=== PATIENT | female | born 1940 | race Caucasian/White ===

== ENCOUNTER 2018-05-16 10:16 | Inpatient (IN) | payer OTHER ==
[~2018-05-16] VITALS: Ht 152.4 cm; Wt 53.1 kg
--- NOTE | ~2018-05-16 | H ---
[facility] [place] [address] HISTORY AND PHYSICAL Name: MARY LUKE Room #: 210-P ADM IN M.R.#: [id number] Admission: 05/16/18 Attend Phys: Pawan Rivera MD, Discharge: Date of : 38 Report #: [id number] THIS REPORT FOR: //name// CC: Jose Sanchez [facility] unknown DATE OF SERVICE: 05/16/2018 HISTORY OF PRESENT ILLNESS: The patient is a 77-year-old female, presents to the Emergency Room with an onset of severe chest pain, shortness of breath, which apparently occurred around 3:30 this morning. She does not speak any Turkish. According to the family, there was some significant discomfort the night prior where she had complained yesterday about some discomfort, but the night before took 2 Tylenol with no recurrence until early this morning, but did not speak of this until later this morning and subsequently brought by her family here to the Emergency Room. Having ST segment elevation in inferior leads, some subtle with some reciprocal changes. No prior cardiac history. She has been a diabetic for maybe 30 years. From what I can tell from limited information from the family, insulin, Pepcid, lisinopril, amlodipine, does not believe she takes a cholesterol medicine. She has not had prior cardiac intervention. She does see a physician in [place]. They say she has become more compliant since a recent knee injection and more active. PAST MEDICAL HISTORY: Positive for longstanding diabetes, hypertension, DJD, glaucoma and recent cataract surgery, recent knee injection. FAMILY HISTORY: Positive for all the siblings have from diabetes, they state. SOCIAL HISTORY: She is , 2 daughters who are present. No alcohol or tobacco. She is relatively independent. REVIEW OF SYSTEMS: Not really obtainable. PHYSICAL EXAMINATION: GENERAL: She is in only mild discomfort at this time. VITAL SIGNS: Blood pressure was 156/80, pulse was 70s. HEENT: Eyes reveal xanthelasmas. Pharynx is clear. NECK: Shows preserved upstrokes without JVD or bruits. LUNGS: Clear. CARDIAC: Regular rate and rhythm, S1, S2. No significant murmur or gallop. ABDOMEN: Soft. No HSM or abdominal bruit, slightly tender in the epigastric area. EXTREMITIES: Reveal trace of edema. Diminished distal pulses. NEUROLOGIC: Nonfocal. SKIN: Warm and dry without xanthoma or ulcer. [facility] [address] [place] [address] HISTORY AND PHYSICAL Name: MARY LUKE Room #: 210-P [facility] IN .R.#: [id number] Admission: 05/16/18 Attend Phys: Pawan Rivera MD, Discharge: Date of : 38 Report #: [id number] MUSCULOSKELETAL: Generalized arthritic changes. ASSESSMENT: 1. Acute inferolateral myocardial infarction. 2. Diabetes, longstanding. 3. Hypertension. 4. Suspected hypercholesterolemia. 5. Degenerative joint disease. RECOMMENDATIONS AND PLAN: We will proceed emergently to the catheterization lab. I have given aspirin, 80 mg of Lipitor and heparin bolus. We will proceed to catheterization lab for a diagnostic angiography and possible intervention if indicated. This was discussed briefly with her daughter. <ELECTRONICALLY SIGNED> By: Pawan Rivera MD, FACC 05/17/18 0906 1222 1239 Pawan Rivera MD, FACC /nt
--- NOTE | ~2018-05-16 | CATHLAB ---
[facility] [address] [place] [address] INVASIVE PROCEDURE REPORT Name: MARY LUKE Room #: 210-P ADM IN .R.#: [id number] Admission: 05/16/18 Attend Phys: Pawan Rivera, Discharge: Date of : 38 Date of Service: 05/16/18 1703 Report #: [id number] THIS REPORT FOR: //name// APPROVED REPORT Study performed: 05/16/2018 10:35:53 Patient Details Patient Status: In-Patient Room #: The patient is a 77 year-old female Event Personnel Pawan Rivera Back Maker, Mimi Gordon RTR, Alexandra Berger Amber Monitor, Magalys, Aliya RN RN, Tom Horta RN grinder operator surface tool Performed Art Access - R femoral artery* 55591 Initial Mod Sed Same Phys/QHP Gr5y [id number] 74378 Mod Sed Same Phys/QHP Ea 044799 Left Heart Cath w/or w/o Coronaries 3405814 [facility] Aortogram Abdominal Peripheral Angio 442786 PHILIPPE Revasc AMI Total/Sub Single CIRC C9606 AMIREVSING Hemostasis w/ Mynx Indication STEMI Procedure Narrative The patient was brought emergently to the Cardiac Catheterization Laboratory and was prepped and draped in a sterile manner. The Right Groin^ was infiltrated with 1% Lidocaine subcutaneous anesthesia. A PINNACLE 6FR Sheath #[id number] sheath was inserted into the RFA^. Coronary angiography was performed using coronary diagnostic catheters. The right coronary system was accessed and visualized with a JR 4 catheter. The left coronary system was accessed and visualized with a JL 4 catheter. The left ventricle was accessed and visualized with a Pigtail catheter. Left ventriculogram was performed in OSMAN projection. An aortogram of the abdominal aorta was performed. Closure device was deployed with a 6 Fr Mynx. The patient tolerated the procedure well and there were no complications associated with the procedure. There was no hematoma. Intraoperative Conscious Sedation Sedation start time: 11:21 Case end Time: 12:17 Fentanyl 50 mcg Versed [address] [address] INVASIVE PROCEDURE REPORT Name: PAULA LUKEA Room #: 210-P [facility] IN ..#: [id number] Admission: 05/16/18 Attend Phys: Pawan Rivera, Discharge: Date of : 38 Date of Service: 05/16/18 1703 Report #: [id number] Fluoro Time: 5.20 minutes Dose: DAP 4713.00 cGycm2 590 mGy Contrast Type and Amount: Visipaque 190 ml Hemodynamics The aortic pressure is 139/71 mmHg with a mean of 97 mmHg. The left ventricular pressure is 142/20 mmHg with a mean of mmHg. The left ventricular end diastolic pressure is 30 mmHg. PCI Technique Lesion Percutaneous coronary intervention was performed on the mid circumflex artery segment. A LAUNCHER 6FR EBU 3.5 #[id number] Guide Catheter was used to engage the ostium. A Luge Wire .014 x 182CM #[id number] Interventional Guidewire was used to cross the lesion. BALLOON DILATION A Balloon catheter Sprinter OTW 2.5 x 12 #[id number] was inserted and inflated up to 5.00atm for 14seconds. Additional Inflation: 6.00atm for 14seconds. Additional Inflation: 10.00atm for 19seconds. STENT DEPLOYMENT A drug-eluting stent RESOLUTE VENKAT OTW 2.5 X 18 #[id number] was inserted and inflated up to 12.00atm for 25seconds. Additional Inflation: 14.00atm for 15seconds. Conclusion #1 successful PTCA stent of a mid codominant circumflex artery acute infarct vessel 100% occlusion to 0 with anglican of MINAL grade 2 flow in the proximal circumflex and the first 2 OM branches are moderate and size and widely patent #2 left main short large free of disease giving rise to LAD and circumflex #3 LAD is mild a moderately disease 4050% long mid vessel extends around the apex no indication for intervention #4 anatomically dominant right coronary artery with 3040% proximal mid vessel lesion giving rise to relatively small PDA ANGELA. It's essentially a codominant system by distribution #5 normal left ventricular size with moderate area of inferior lateral hypokinesis there looks to be 2-3+ mitral regurgitation EF 40-45% #6 abdominal aorta is intact there is no symptom can aneurysm or stenosis noted [facility] [address] [place] [address] INVASIVE PROCEDURE REPORT Name: MARY LUKE Room #: 210[facility] IN M.R.#: [id number] Admission: 10/11/18 Attend Phys: Pawan Rivera, Discharge: Date of : 38 Date of Service: 05/16/181702 Report #: [id number] Recommendations and plan continue aggressive risk factor modification. Patient had moderate right groin hematoma. Despite closure device. Hemodynamically stable and pain-free. Will obtain echo Doppler to assess LV function and mitral regurg which may be ischemic in nature. To CCU and stable but guarded condition dual antiplatelet therapy indefinitely <ELECTRONICALLY SIGNED> By: Pawan Rivera MD, FACC 05/16/181702 02 02 Pawan Rivera MD, FACC /INF
--- NOTE | ~2018-05-16 | EKG ---
[address] [address] ELECTROCARDIOGRAM REPORT Name: MARY LUKE Room #: 210-P ADM IN M.R.#: [id number] Admission: 05/16/18 Attend Phys: Pawan Rivera MD, Discharge: Date of : 39 Report #: [id number] THIS REPORT FOR: //name// [facility] Test Date: 2018-05-18 Test Time: 08:02:49 Pat Name: MARY LUKE Department: Room: 210 P Gender: F Employment Interviewer: STEFFANIE : 1940 Requested By: Ni Arriola Order Number: [id number] MD: Lencho Mukherjee Measurements Intervals [place] Rate: 64 P: 44 ME: 154 QRS: -27 QRSD: 96 T: -53 QT: 472 QTc: 487 Interpretive Statements Sinus rhythm Abnormal R-wave progression, early transition Probable left ventricular hypertrophy Inferior infarct, recent Lateral leads are also involved Compared to ECG 05/17/2018 06:20:37 Atrial premature complex(es) no longer present Myocardial infarct finding still present Electronically Signed On 05-19-2018 16:47:31 CDT by Lencho Mukherjee [email or web address] <ELECTRONICALLY SIGNED> By: Lencho Mukherjee MD 05/19/18 1647 1 08 Lencho Mukherjee MD /EPI
--- NOTE | ~2018-05-16 | 2DMMODE ---
[facility] [address] [place] [address] 2 D/M-MODE ECHOCARDIOGRAM Name: MARY LUKE Room #: 210-P ADM IN M.R.#: [id number] Admission: 05/16/18 Attend Phys: Pawan Rivera, Discharge: Date of : 38 Date of Service: 05/20/18 1138 Report #: [id number] THIS REPORT FOR: //name// APPROVED REPORT Study performed: 05/20/2018 09:49:02 EXAM: Limited 2D, Doppler, and color-flow Echocardiogram Patient Location: Bedside Room #: 210 Status: routine BSA: 1.49 HR: 60 bpm BP: 99/53 mmHg Rhythm: NSR Other Information Study Quality: Adequate Indications Follow up echo for severity of mitral regurgitation. Ischemic mod-sev MR noted on echo done 05/16/18 status post cardiac stent. Aortic Valve AoV Peak Dale.: 1.75 m/s AO Peak Gr.: 12.18 mmHg Tricuspid Valve TR Peak Dale.: 2.08 m/s RAP Estimate: 5.00 mmHg TR Peak Gr.: 17.38 mmHg PA Pressure: 22.00 mmHg Left Ventricle The left ventricle is normal size. Regional wall motion abnormalities are noted. There is normal left ventricular wall thickness. Left ventricular systolic function is at the lower limits of normal LVEF 50%. Minimal hypokinesis of base of inferolateral wall Right Ventricle The right ventricle is normal size. The right ventricular systolic function is normal. Atria The left atrium size is normal. The right atrium size is normal. [facility] [address] [place] [address] 2 D/M-MODE ECHOCARDIOGRAM Name: MARY LUKE Room #: 210-P [facility] IN M.R.#: [id number] Admission: 05/16/18 Attend Phys: Pawan Rivera, Discharge: Date of : 38 Date of Service: 05/20/18 1138 Report #: [id number] Aortic Valve The aortic valve is normal in structure. Trace aortic regurgitation. There is no aortic valvular stenosis. Mitral Valve The mitral valve is normal in structure. Mild to at most moderate mitral regurgitation. Tricuspid Valve The tricuspid valve is normal in structure. Trace tricuspid regurgitation. Estimated PAP is 20-25mmHg. Great Vessels IVC is normal in size and collapses >50% with inspiration. Pericardium There is no pericardial effusion. <Conclusion> Left ventricular systolic function is at the lower limits of normal LVEF 50%. Minimal hypokinesis of base of inferolateral wall The aortic valve is normal in structure. No aortic valvular stenosis. The mitral valve is normal in structure. Mild to at most moderate mitral regurgitation. Trace tricuspid regurgitation. Estimated pulmonary artery pressure of 20-25mmHg. There is no pericardial effusion. <ELECTRONICALLY SIGNED> By: Delfino Crane MD, FAC 05/20/18 1138 1138 1138 Delfino Crane MD, FAC /INF
--- NOTE | ~2018-05-16 | EKG ---
[address] [employer] [facility] [place] [address] ELECTROCARDIOGRAM REPORT Name: PAULA LUKEA Room #: 210-P ADM IN M.R.#: [id number] Admission: 05/16/18 Attend Phys: Pawan Rivera MD, Discharge: Date of : 38 Report #: [id number] THIS REPORT FOR: //name// [facility] ED Test Date: 2018-05-16 Test Time: 10:29:46 Pat Name: MARY LUKE Department: Room: 210 Gender: F Jail Guard: CHAD : 1940 Requested By: Jose Sanchez Order Number: [id number] MD: Lencho Mukherjee Measurements Intervals [place] Rate: 73 P: 60 [place]: 172 QRS: 21 QRSD: 83 T: 76 QT: 376 QTc: 415 Interpretive Statements Sinus rhythm Inferior infarct, acute (RCA) Lateral leads are also involved Probable RV involvement, suggest recording right precordial leads Compared to ECG 01/11/2016 12:14:58 Myocardial infarct finding now present Sinus bradycardia no longer present Left ventricular hypertrophy no longer present Electronically Signed On 05-17-2018 8:16:32 CDT by Lencho Mukherjee [email or web address] <ELECTRONICALLY SIGNED> By: Lencho Mukherjee MD 05/17/18 0816 1029 1029 Lencho Mukherjee MD /EPI
--- NOTE | ~2018-05-16 | 2DMMODE ---
[facility] [place] [address] 2 D/M-MODE ECHOCARDIOGRAM Name: MARLYMARY Room #: 210-P [facility] IN ..#: [id number] Admission: 05/16/18 Attend Phys: Pawan Rivera, Discharge: Date of : 38 Date of Service: 05/16/18 1519 Report #: [id number] THIS REPORT FOR: //name// APPROVED REPORT Study performed: 05/16/2018 12:56:42 EXAM: Comprehensive 2D, Doppler, and color-flow Echocardiogram Patient Location: CVL Status: routine BSA: 1.47 HR: 59 bpm BP: 159/90 mmHg Rhythm: NSR Other Information Study Quality: Adequate/flat on back s/p heart cath Indications Myocardial Infarct status post stent. Hx: HTN, DM 2D Dimensions RVDd: 30.80 mm IVSd: 11.54 (7-11mm) LVOT Diam: 20.33 (18-24mm) LVDd: 47.28 mm PWd: 9.04 (7-11mm) Ascending Ao: 34.03 (22-36mm) LVDs: 37.52 (25-40mm) Aortic Root: 33.53 mm Volumes Left Atrial Volume (Systole) Single Plane 4CH: 35.69 mL Single Plane 2CH: 32.52 mL LA ESV Index: 26.00 mL/m2 Aortic Valve AoV Peak Dale.: 1.35 m/s AO Peak Gr.: 7.26 mmHg LVOT Max P.61 mmHg LVOT Max V: 0.81 m/s JAZMYNE Vmax: 1.95 cm2 Mitral Valve E/A Ratio: 0.8 MV Decel. Time: 178.83 ms [facility] [place] [place] [address] 2 D/M-MODE ECHOCARDIOGRAM Name: MARY LUKE Room #: [facility] IN .R.#: [id number] Admission: 05/16/18 Attend Phys: Pawan Rivera, Discharge: Date of : 38 Date of Service: 05/16/18 1519 Report #: [id number] MV E Max Dale.: 0.71 m/s MV A Dale.: 0.91 m/s MV PHT: 51.86 ms IVRT: 83.04 ms Pulmonary Valve PV Peak Dale.: 1.15 m/s PV Peak Gr.: 5.32 mmHg Pulmonary Vein P Vein S: 0.61 m/s P Vein A: 0.33 m/s P Vein D: 0.40 m/s P Vein A Dur.: 170.7 msec P Vein S/D Ratio: 1.52 Tricuspid Valve TR Peak Dale.: 2.76 m/s RAP Estimate: 5.00 mmHg TR Peak Gr.: 30.52 mmHg PA Pressure: 36.00 mmHg Left Ventricle The left ventricle is normal size. Regional wall motion abnormalities are noted. There is normal left ventricular wall thickness. Left ventricular systolic function is mildly decreased. LVEF is 45%. Inferolateral wall hypokinesis Mild diastolic dysfunction is present (impaired relaxation pattern). Right Ventricle The right ventricle is normal size. The right ventricular systolic function is normal. Atria The left atrium size is normal. The right atrium size is normal. Aortic Valve The aortic valve is normal in structure. No aortic regurgitation is present. There is no aortic valvular stenosis. Mitral Valve The mitral valve is normal in structure. Moderate to severe mitral regurgitation Tricuspid Valve The tricuspid valve is normal in structure. Mild tricuspid regurgitation. Estimated PAP is 35-40mmHg. Pulmonic Valve [address] [address] 2 D/M-MODE ECHOCARDIOGRAM Name: MARY LUKE Room #: 210-P [facility] IN M.R.#: [id number] Admission: 05/16/18 Attend Phys: Pawan Rivera, Discharge: Date of : 38 Date of Service: 05/16/18 1519 Report #: [id number] The pulmonary valve is normal in structure. Trace pulmonic regurgitation. Great Vessels The aortic root is normal in size. The ascending aorta is normal in size. IVC is normal in size and collapses >50% with inspiration. Pericardium There is no pericardial effusion. <Conclusion> Left ventricular systolic function is mildly decreased. LVEF is 45%. Inferolateral wall hypokinesis Mild diastolic dysfunction The aortic valve is normal in structure. No aortic regurgitation or stenosis The mitral valve is normal in structure. Moderate to severe mitral regurgitation Mild tricuspid regurgitation. Estimated pulmonary artery pressure of 35-40mmHg. There is no pericardial effusion. <ELECTRONICALLY SIGNED> By: Delfino Crane MD, FACC 05/16/18 1519 18 18 Delfino Crane MD, FACC /INF
--- NOTE | ~2018-05-16 | EKG ---
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
[~2018-05-16 10:16] MED LIST: AMLODIPINE BESY10 MG PO; LANTUS SOL100 UNIT/1 SQ; NOVOLOG100 UNIT/1 SUBQ; PEPCID20 MG PO
[2018-05-16 10:17] VITALS: BP 179/92
[2018-05-16 10:51] VITALS: BP 159/90
[2018-05-16 10:54] LABS: ABSOLUTE NEUTROPHILS 7.4 thou/uL (1.4-8.2); BASOPHILS 0.4 % (0.0-2.0); EOSINOPHILS 0.2 % (0.0-3.0); HEMATOCRIT 44.8 % (37.0-47.0); HEMOGLOBIN 15.2 gm/dL (12.0-15.0); LYMPHOCYTES 12.9 % (24.0-44.0); MCH 30.1 pg (26.0-34.0); MCHC 33.8 g/dL (28.0-37.0); MONOCYTES 4.9 % (1.0-8.0); PLATELET COUNT 173 thou/uL (150-400); POLYS 81.6 % (36.0-66.0); RBC 5.04 mil/uL (4.20-5.00); RDW 13.3 % (10.5-14.5); WBC 9.1 thou/uL (4.0-11.0)
[2018-05-16 11:00] LABS: CALCIUM 8.6 mg/dL (8.5-10.1); POTASSIUM 4.2 mmol/L (3.5-5.1)
[2018-05-16 11:04] LABS: APTT 26.3 Seconds (24.5-32.8); PROTIME 10.4 Seconds (9.3-11.4)
[2018-05-16 11:08] LABS: ALBUMIN 3.4 g/dL (3.4-5.0); MAGNESIUM 1.7 mg/dL (1.8-2.4); TOTAL BILIRUBIN 0.5 mg/dL (<0.1-1.0); TOTAL PROTEIN 7.2 g/dL (6.4-8.2)
[2018-05-16 11:11] LABS: TROPONIN-I 21.96 ng/mL (<0.06)
[2018-05-16 14:00] VITALS: BP 154/81
[2018-05-16 20:35] VITALS: BP 168/75
[2018-05-17 00:45] VITALS: BP 144/78
[2018-05-17 04:45] VITALS: BP 152/74
[2018-05-17 04:52] LABS: HEMATOCRIT 40.4 % (37.0-47.0); HEMOGLOBIN 13.7 gm/dL (12.0-15.0); MCH 29.9 pg (26.0-34.0); MCHC 33.8 g/dL (28.0-37.0); MCV 88.3 fL (80.0-100.0); RBC 4.57 mil/uL (4.20-5.00); RDW 13.1 % (10.5-14.5); WBC 8.3 thou/uL (4.0-11.0)
[2018-05-17 05:16] LABS: CHOLESTEROL 128 mg/dL (<200); HDL CHOLESTEROL 50 mg/dL (>40); LDL CHOLESTEROL 66 mg/dL (<100); SERUM ASSESSMENT Clear; TC:HDL 2.6 Ratio (Not establshd); TRIGLYCERIDE 63 mg/dL (<150); VLDL 13 mg/dL (<40)
[2018-05-17 05:19] LABS: TROPONIN-I 68.59 ng/mL (<0.06)
[2018-05-17 07:10] VITALS: BP 156/88
[2018-05-17] MEDS ORDERED: COZAAR100 MG PO (08:44)
[2018-05-17] MEDS ORDERED: CLOPIDOGREL75 MG PO (08:44)
[2018-05-17] MEDS ORDERED: ATORVASTATIN CA40 MG PO (08:44)
[2018-05-17] MEDS ORDERED: LOPRESSOR25 PO (08:44)
[2018-05-17] MEDS ORDERED: ASPIRIN325 PO (08:44)
[2018-05-17 11:20] VITALS: BP 134/81
[2018-05-17 16:00] VITALS: BP 133/80
[2018-05-17 20:30] VITALS: BP 120/58
[2018-05-18 04:45] VITALS: BP 112/72
[2018-05-18 05:21] LABS: HEMATOCRIT 38.5 % (37.0-47.0); HEMOGLOBIN 13.3 gm/dL (12.0-15.0); MCH 30.7 pg (26.0-34.0); MCHC 34.7 g/dL (28.0-37.0); MCV 88.4 fL (80.0-100.0); RBC 4.35 mil/uL (4.20-5.00); RDW 13.1 % (10.5-14.5); WBC 7.7 thou/uL (4.0-11.0)
[2018-05-18 05:26] LABS: CREATININE 1.1 mg/dL (0.6-1.0); POTASSIUM 4.2 mmol/L (3.5-5.1)
[2018-05-18 07:10] VITALS: BP 106/52
[2018-05-18 11:30] VITALS: BP 134/67
[2018-05-18 15:25] VITALS: BP 84/45
[2018-05-18 20:21] VITALS: BP 116/67
[2018-05-19 04:36] LABS: ABSOLUTE NEUTROPHILS 6.6 thou/uL (1.4-8.2); BASOPHILS 0.4 % (0.0-2.0); EOSINOPHILS 2.6 % (0.0-3.0); HEMATOCRIT 37.8 % (37.0-47.0); HEMOGLOBIN 12.8 gm/dL (12.0-15.0); LYMPHOCYTES 23.4 % (24.0-44.0); MCH 29.8 pg (26.0-34.0); MCHC 33.9 g/dL (28.0-37.0); MCV 87.9 fL (80.0-100.0); MONOCYTES 8.8 % (1.0-8.0); PLATELET COUNT 156 thou/uL (150-400); POLYS 64.8 % (36.0-66.0); RDW 12.8 % (10.5-14.5); WBC 10.2 thou/uL (4.0-11.0)
[2018-05-19 04:43] VITALS: BP 96/46
[2018-05-19 04:49] LABS: CREATININE 1.2 mg/dL (0.6-1.0); POTASSIUM 3.7 mmol/L (3.5-5.1)
[2018-05-19 08:36] VITALS: BP 90/60
[2018-05-19 12:49] VITALS: BP 102/59
[2018-05-19 16:11] VITALS: BP 118/61
[2018-05-19 20:35] VITALS: BP 111/49
[2018-05-19 23:36] VITALS: BP 102/46
[2018-05-20 03:31] LABS: ABSOLUTE NEUTROPHILS 4.7 thou/uL (1.4-8.2); BASOPHILS 0.5 % (0.0-2.0); EOSINOPHILS 4.2 % (0.0-3.0); HEMATOCRIT 33.8 % (37.0-47.0); HEMOGLOBIN 11.6 gm/dL (12.0-15.0); LYMPHOCYTES 26.7 % (24.0-44.0); MCH 30.1 pg (26.0-34.0); MCHC 34.3 g/dL (28.0-37.0); MCV 87.7 fL (80.0-100.0); PLATELET COUNT 143 thou/uL (150-400); POLYS 61.6 % (36.0-66.0); RBC 3.86 mil/uL (4.20-5.00); RDW 13.3 % (10.5-14.5); WBC 7.7 thou/uL (4.0-11.0)
[2018-05-20 03:41] LABS: CALCIUM 7.8 mg/dL (8.5-10.1); CREATININE 1.3 mg/dL (0.6-1.0); POTASSIUM 4.1 mmol/L (3.5-5.1)
[2018-05-20 04:45] VITALS: BP 114/57
[2018-05-20 07:09] VITALS: BP 99/53
[2018-05-20 11:31] VITALS: BP 108/54
[2018-05-20 15:20] VITALS: BP 107/42
[2018-05-20 21:05] VITALS: BP 110/68
[2018-05-21 00:12] VITALS: BP 91/46
[2018-05-21 03:58] VITALS: BP 126/66
[2018-05-21 07:22] VITALS: BP 84/57
[2018-05-21 08:37] VITALS: BP 84/57
== END 2018-05-21 10:40 | disposition home or self-care (01) | DRG 247 ==
LOC: ER 10:16 → 2N 10:51 → ENTRNSPT 05-21 10:12 → EDTRNSPTSTS 05-21 10:16 → 2N 05-21 10:40
PROVIDERS: Emergency Medicine; Internal Medicine Cardiovascular Disease; Nurse Practitioner Adult Health
PROC: B2111ZZ Fluoroscopy of Multiple Coronary Arteries using Low Osmolar Contrast (ICD-10-PCS; principal; 2018-05-16)
PROC: 4A023N7 Measurement of Cardiac Sampling and Pressure, Left Heart, Percutaneous Approach (ICD-10-PCS; principal; 2018-05-16)
PROC: B4101ZZ Fluoroscopy of Abdominal Aorta using Low Osmolar Contrast (ICD-10-PCS; principal; 2018-05-16)
PROC: B2151ZZ Fluoroscopy of Left Heart using Low Osmolar Contrast (ICD-10-PCS; principal; 2018-05-16)
PROC: 027034Z Dilation of Coronary Artery, One Artery with Drug-eluting Intraluminal Device, Percutaneous Approach (ICD-10-PCS; principal; 2018-05-16)
DX: I21.19 ST elevation (STEMI) myocardial infarction involving other coronary artery of inferior wall (principal); M19.90 Unspecified osteoarthritis, unspecified site; E11.39 Type 2 diabetes mellitus with other diabetic ophthalmic complication; H42 Glaucoma in diseases classified elsewhere; I08.1 Rheumatic disorders of both mitral and tricuspid valves; I10 Essential (primary) hypertension; E11.42 Type 2 diabetes mellitus with diabetic polyneuropathy; E78.00 Pure hypercholesterolemia, unspecified; I95.9 Hypotension, unspecified; Z98.49 Cataract extraction status, unspecified eye; Z83.3 Family history of diabetes mellitus; Z79.4 Long term (current) use of insulin; Z79.899 Other long term (current) drug therapy; Z23 Encounter for immunization
CPT/HCPCS: 10081

== ENCOUNTER 2018-09-07 16:54 | Inpatient (IN) | payer OTHER ==
[~2018-09-07] VITALS: Ht 149.9 cm; Wt 53.5 kg
[~2018-09-07 16:54] MED LIST changes: +ASPIRIN325 PO; +ATORVASTATIN CA40 MG PO; +CLOPIDOGREL75 MG PO; +COZAAR100 MG PO; +LOPRESSOR25 PO
[2018-09-07 16:59] VITALS: BP 164/84
[2018-09-07 17:36] LABS: URINE BILIRUBIN NEGATIVE (Negative); URINE BLOOD NEGATIVE (Negative); URINE CLARITY CLEAR; URINE COLOR YELLOW; URINE GLUCOSE-RANDOM* 3+ (Negative); URINE KETONES NEGATIVE (Negative); URINE LEUKOCYTES-REFLEX TRACE (Negative); URINE NITRITE-REFLEX NEGATIVE (Negative); URINE PROTEIN (DIPSTICK) TRACE (Negative); URINE SPECIFIC GRAVITY 1.025 (1.005-1.035)
[2018-09-07 17:39] LABS: ABSOLUTE NEUTROPHILS 5.9 thou/uL (1.4-8.2); BASOPHILS 0.8 % (0.0-2.0); EOSINOPHILS 1.7 % (0.0-3.0); HEMATOCRIT 40.8 % (37.0-47.0); LYMPHOCYTES 16.8 % (24.0-44.0); MCH 30.8 pg (26.0-34.0); MCHC 34.4 g/dL (28.0-37.0); MCV 89.7 fL (80.0-100.0); MONOCYTES 5.8 % (1.0-8.0); PLATELET COUNT 160 thou/uL (150-400); POLYS 74.9 % (36.0-66.0); RBC 4.55 mil/uL (4.20-5.00); RDW 13.4 % (10.5-14.5); WBC 7.9 thou/uL (4.0-11.0)
[2018-09-07] MEDS ORDERED: LEVEMIR FL100 UNIT/2 SUBQ (17:42)
[2018-09-07] MEDS ORDERED: ASPIRIN81 M2 PO (17:43)
[2018-09-07] MEDS ORDERED: AMLODIPINE BESY10 MG PO (17:44)
[2018-09-07] MEDS ORDERED: LOSARTAN POTASS50 MG PO (17:44)
[2018-09-07] MEDS ORDERED: COMBIGAN EYE DR10 ML OPHTHALMIC (17:48)
[2018-09-07 17:50] LABS: CALCIUM 8.8 mg/dL (8.5-10.1); CREATININE 1.1 mg/dL (0.6-1.0); POTASSIUM 3.8 mmol/L (3.5-5.1)
[2018-09-07 17:56] LABS: ALBUMIN 3.5 g/dL (3.4-5.0); TOTAL BILIRUBIN 0.9 mg/dL (<0.1-1.0); TOTAL PROTEIN 7.1 g/dL (6.4-8.2)
[2018-09-07 20:35] VITALS: BP 153/86
[2018-09-07 21:07] VITALS: BP 170/91
[2018-09-07 21:28] VITALS: BP 153/123
--- NOTE | 2018-09-08 02:59 | NUR ---
A/O, calm and cooperative; afebrile; denied pain; no n/v; patient drank ice water, tolerated well; got up to bed commode with one assist; bed rest, lab reviewed, will keep monitoring.
[2018-09-08 05:50] LABS: CALCIUM 8.5 mg/dL (8.5-10.1); CREATININE 0.8 mg/dL (0.6-1.0); POTASSIUM 3.3 mmol/L (3.5-5.1)
[2018-09-08 10:33] VITALS: BP 140/64
--- NOTE | 2018-09-08 13:06 | NUR ---
PT DELIVERED VIA BED D/T PAIN MED CONTROL ADM PRIOR TO TRANSFER, PT SPEAKS [facility], THREE FAMILY MEMBERS PRESENT, NO ISSUES OF PAIN OR NEEDS AT THIS TIME, WILL RESUME HANGING IVF WHEN SHE SHOWS UP IN [facility], GAVE FAMILY DRINKS AND ENCOURAGED ALL TO USE CALL LIGHT FOR ANY NEEDS, DID ANOTHER DEMO ON HOW TO USE LIGHTS AND NURSE CALL AND PT TURNED HER HEAD AWAY TOWARD TELEVISION.
--- NOTE | 2018-09-08 13:21 | NUR ---
FAMILY ASKS FOR REASON TO TRANFER DOWN HERE AND EXCLAIMED OVER HER STAFF UPSTAIRS WELL DOWN HERE
--- NOTE | 2018-09-08 13:32 | NUR ---
ASSUMED PT CARE AT 0700H. PT A&O X4. PT SPEAKS [place]. PT FAMILY AT BEDSIDE. PT STATES NO PAIN AT THE TIME. PT CONCERN OF PAIN DUE TO NOT EATING. PT PER PHYSICIAN VISIT STARTED ON BLAND, LOW FAT DIET. PT HAD PAIN AFTER EATING. PT TOLERATED MEDS. PT AMBULATES TO BATHROOM. PT HAD A BOWEL. PT HAD BRIEFS CHANGED TWICE. PT HAD GLU AT 67 AND CURRENTLY AT 144. PT CURRENTLY DC TO SICU RM 220. PT CONTINUES TO BE MONITORED WAITING FOR PIPIDA ON SUN.
[2018-09-08 14:00] VITALS: BP 132/76
--- NOTE | 2018-09-08 15:22 | NUR ---
WRAPPED IV SITE IT'S IN THE AC AND BEEPS CONSTANTLY D/T CONSTRICTION PTS CAN'T ALWAYS REMEMBER TO KEEP LIMB STRAIGHT
[2018-09-08 19:43] VITALS: BP 128/72
--- NOTE | 2018-09-09 07:59 | HC ---
[facility] [place] [address] CONSULTATION Name: LUKEMARY Room #: 220-P ADM IN M.R.#: [id number] Admission: 09/07/18 Attend Phys: Sammie Elizondo Discharge: Date of : 39 Report #: [id number] THIS REPORT FOR: //name// CC: FAM physician/PCP FAM unknown Sammie Elizondo CARDIOLOGY CONSULTATION HISTORY OF PRESENT ILLNESS: The patient is a 78-year-old female who speaks very little Cymro. She is known to me. She had an aborted inferolateral infarct in May of last year, 05/2018, with placement of a 2.5 x 18 Resolute [place] stent. She had moderate LAD and RCA disease. The ejection fraction was 40% to 45%. She does have a history of severe mitral regurgitation, but has been well compensated. I saw her right before [place] in the office. She has been compliant with medications. She is on dual-antiplatelet therapy and that will need to be continued. Mild pulmonary hypertension. In any event, she is admitted with a week of right upper quadrant and mid abdominal pain, with a change in her bowel habits with pale yellow stools. Subsequently, found to have a cholecystitis and this is being followed by General Surgery, continuing workup, which will include a PIPIDA scan tomorrow and antibiotics. It would be best as per and I agree with their note to hold off any semi-elective surgery for at least 6 months before we would interrupt dual-antiplatelet therapy. No chest pain or anginal complaints. The daughter is in the room to help with the language issues. She is compliant with medications currently. MEDICATIONS: Amlodipine 10; Voltaren gel p.r.n.; gabapentin 100 t.i.d.; Vistaril 25; Levemir; Xalatan; Cozaar 50, which is losartan; Prilosec; clopidogrel 75 and a baby aspirin. PAST MEDICAL HISTORY: CAD with an aborted inferolateral infarct, circumflex OM stent, 05/2018; mild ischemic cardiomyopathy; moderate valvular insufficiency with mild pulmonary hypertension; DJD; hypercholesterolemia; diabetes and chronic kidney disease. FAMILY HISTORY: Negative for premature coronary artery disease. A brother and sister with diabetes. SOCIAL HISTORY: She is accompanied by her daughter here. Never smoker. No alcohol use. Some caffeine. ALLERGIES: SOME PARTICULAR INSULIN. REVIEW OF SYSTEMS: Essentially not obtainable, except per the notes because of the language barrier, but there was a change in the bowel habits and the abdominal pain, [place] [address] CONSULTATION Name: MARY LUKE Room #: 220-P ADM IN M.R.#: [id number] Admission: 09/07/18 Attend Phys: Sammie Elizondo Discharge: Date of : 39 Report #: [id number] LABORATORY DATA: Creatinine was 1.1, potassium 3.3. Alkaline phosphatase was elevated 401 and ALT 136. Glucose 300. H and H are 14 and 40, white count 7.9. The urine looked relatively unremarkable. Lipase was not elevated. RADIOLOGIC DATA: CT showed distended gallbladder, some possible pericholecystic fluid and some stranding and generalized thickening. PHYSICAL EXAMINATION: GENERAL: She is pleasant. She does not speak Cymro. Her daughter is in the room. VITAL SIGNS: Blood pressure has been labile, but generally 150-170. Pulse is 80s. HEENT: Eyes reveal no xanthelasmas. Pharynx is clear. NECK: Shows preserved upstrokes, without JVD or bruits. LUNGS: Clear. CARDIAC EXAMINATION: Regular rate and rhythm, S1, S2, distant heart tones. ABDOMEN: Slightly tender in the epigastric and right upper quadrant. Bowel sounds appear hypoactive, but are present. EXTREMITIES: Reveal trace of nonpitting edema. NEUROLOGIC: Nonfocal. SKIN: Warm and dry, without xanthoma or ulcer. MUSCULOSKELETAL: Generalized arthritic changes. ASSESSMENT: 1. Acute cholecystitis. Currently being treated, may be more of an phijo-sd-gglsjyq nature. 2. Coronary artery disease with an aborted inferolateral infarct, 05/2018, with a drug-eluting stent in the circumflex obtuse marginal. 3. Mild ischemic cardiomyopathy of 45%. 4. Moderately severe mitral regurgitation with mild pulmonary hypertension. 5. Hypertension. 6. Hypercholesterolemia. 7. Diabetes. RECOMMENDATIONS AND PLAN: We will continue with dual-antiplatelet therapy. It sounds like there is further workup including antibiotics, possibly a drain. I would favor holding off on surgery for at least 6 months after the stent; so November would be a time frame. There are some reports of interrupting dual-antiplatelet therapy for emergent surgery, which we certainly could attempt if necessary. We will continue to follow with you. She appears to be cardiovascularly stable, without any chest pain or angina. We will discuss with Surgery about the option of proceeding with surgery sooner, but I suspect they will also be continuing with antibiotics and trying to cool this off before any operation. Ideally, an operation should be in November. [facility] [address] [place] [address] CONSULTATION Name: MARY LUKE Room #: 220-P ADM IN M.R.#: [id number] Admission: 09/07/18 Attend Phys: Sammie Elizondo Discharge: Date of : 39 Report #: [id number] Thank you for asking us to assist in the care of this patient. <ELECTRONICALLY SIGNED> By: Pawan Rivera MD, FACC 09/09/18 0759 0919 1036 Pawan Rivera MD, FACC /nt
[2018-09-09 08:00] VITALS: BP 115/59
--- NOTE | 2018-09-09 08:36 | EKG ---
[place] [address] [facility] [place] [address] ELECTROCARDIOGRAM REPORT Name: MARY LUKE Room #: 220-P ADM IN M.R.#: [id number] Admission: 09/07/18 Attend Phys: Sammie Elizondo Discharge: Date of : 39 Report #: [id number] THIS REPORT FOR: //name// [facility] Test Date: 2018-09-08 Test Time: 09:30:00 Pat Name: MARY LUKE Department: Room: 220 Gender: F Piano Mechanic: ONI : 1940 Requested By: Pawan Rivera Order Number: [id number] MD: Delfino Crane Measurements Intervals [place] Rate: 82 P: 46 FL: 151 QRS: -51 QRSD: 93 T: -49 QT: 417 QTc: 487 Interpretive Statements Sinus rhythm Inferolateral infarct, age indeterminate Compared to ECG 05/18/2018 08:02:49 ST segment elevation is less prominent Electronically Signed On 09-09-2018 8:36:24 BIRTH CERTIFICATE CLERK by Delfino Crane [email or web address] <ELECTRONICALLY SIGNED> By: Delfino Crane MD, [facility] 09/09/18 0836 9 Delfino Crane MD, [facility] /EPI
--- NOTE | 2018-09-09 10:52 | NUR ---
PATIENT CARE WAS ASSUMED AT 0715.PATIENT IS ALERT AND ORIENTED X4.PATIENT SPEAKS ROMANIAN ONLY.FAMILY IS AT BEDSIDE TO DO MINOR TRANSLATION.NO COMPLAINS OF PAIN AT THIS TIME.PT IS ASLEEP AT THIS TIME.IV IS INTACT AND INFUSING FLUIDS.PT HAS NOT EATNE SINCE MID-NIGHT FOR TEST.BREAKFAST WAS HELD.CALL LIGHT, PHONE, AND PERSONAL BELONGINGS ARE WITHIN REACH.
--- NOTE | 2018-09-09 11:02 | NUR ---
MORPHINE SULFATE 2.0 MG IVP GIVEN TO PT. IN NUC FOR STUDY PROTOCOL. VSS. PT. TOLERATED WITH NO C/O.
--- NOTE | 2018-09-09 12:34 | NUR ---
INITIAL ASSESSMENT: SW reviewed chart and spoke with nursing and attending physician. Pt was admitted from home due to abdominal pain/acute cholecystitis. Pt had PIPIDA scan earlier today. Per chart, pt lives at home with family. Pt's primary language is Greenlandic. No family present at bedside. Pt does not have health insurance. Referral sent to [facility] for financial assistance. Pt to have surgery in November. REJI is following to assist as needed with discharge planning.
--- NOTE | 2018-09-09 14:47 | 2DMMODE ---
[facility] [address] [place] [address] 2 D/M-MODE ECHOCARDIOGRAM Name: LUKEMARY Room #: 220-P ADM IN M.R.#: [id number] Admission: 09/07/18 Attend Phys: Sammie Chaudhari Discharge: Date of : 38 Date of Service: 09/09/18 1446 Report #: [id number] THIS REPORT FOR: //name// APPROVED REPORT Study performed: 09/09/2018 12:07:23 EXAM: Comprehensive 2D, Doppler, and color-flow Echocardiogram Patient Location: Bedside Room #: 220 Status: routine BSA: 1.47 HR: 80 bpm BP: 128/72 mmHg Rhythm: NSR Other Information Study Quality: Adequate Risk Factors: Cardiac Risk Factors: HTN, Hyperlipidemia, DM Indications Cardiomyopathy Previous WI 2D Dimensions IVSd: 11.04 (7-11mm) LVOT Diam: 18.00 (18-24mm) LVDd: 39.90 mm PWd: 11.63 (7-11mm) Ascending Ao: 31.20 (22-36mm) LVDs: 27.90 (25-40mm) Aortic Root: 27.15 mm LV Single Plane 4CH: 47.72 % LV Single Plane 2CH: 48.03 % Biplane EF: 49.4 % Volumes Left Atrial Volume (Systole) Single Plane 4CH: 34.47 mL Single Plane 2CH: 25.51 mL LA ESV Index: 25.00 mL/m2 Aortic Valve AoV Peak Dale.: 1.59 m/s AO Peak Gr.: 10.11 mmHg LVOT Max P.45 mmHg LVOT Max V: 0.93 m/s JAZMYNE Vmax: 1.47 cm2 [facility] [place] [address] 2 D/M-MODE ECHOCARDIOGRAM Name: LUKEMARY Room #: 220-P [facility] IN ..#: [id number] Admission: 09/07/18 Attend Phys: Sammie Chaudhari Discharge: Date of : 39 Date of Service: 09/09/18 1446 Report #: [id number] Mitral Valve E/A Ratio: 0.7 MV Decel. Time: 284.42 ms MV E Max Dale.: 0.69 m/s MV A Dale.: 1.06 m/s MV PHT: 82.48 ms IVRT: 65.74 ms TDI E/Lateral E': 13.80 E/Medial E': 23.00 Medial E' Dale.: 0.03 m/s Lateral E' Dale.: 0.05 m/s Pulmonary Valve PV Peak Dale.: 0.97 m/s PV Peak Gr.: 3.79 mmHg Pulmonary Vein P Vein S: 0.69 m/s P Vein A: 0.28 m/s P Vein D: 0.31 m/s P Vein A Dur.: 121.1 msec P Vein S/D Ratio: 2.23 Tricuspid Valve TR Peak Dale.: 2.33 m/s RAP Estimate: 7.00 mmHg TR Peak Gr.: 21.66 mmHg PA Pressure: 29.00 mmHg Left Ventricle The left ventricle is normal size. Borderline concentric left ventricular hypertrophy. Left ventricular systolic function is borderline. Mild inferolateral hypokinesis at base LVEF 50%. Grade I - abnormal relaxation pattern. Right Ventricle The right ventricle is normal size. The right ventricular systolic function is normal. Atria The left atrium size is normal. The right atrium size is normal. Aortic Valve The Aortic valve is sclerotic. No aortic regurgitation is present. There is no aortic valvular stenosis. [facility] [address] [address] 2 D/M-MODE ECHOCARDIOGRAM Name: MARY LUKE Room #: 220-P [facility] IN ..#: [id number] Admission: 09/07/18 Attend Phys: Sammie Chaudhari Discharge: Date of : 38 Date of Service: 09/09/18 1446 Report #: [id number] Mitral Valve There is mitral annular calcification. Mild mitral regurgitation. No evidence of mitral valve stenosis. Tricuspid Valve The tricuspid valve is normal in structure. Mild tricuspid regurgitation.Pulmonary artery pressure is 30 mmHg. Pulmonic Valve The pulmonary valve is normal in structure. There is no pulmonic valvular regurgitation. Great Vessels The aortic root is normal in size. IVC is normal in size and collapses >50% with inspiration. Pericardium There is no pericardial effusion. <Conclusion> Left ventricular systolic function is borderline. Possible mild inferolateral hypokinesis at base LVEF 50%. Mild diastolic dysfunction The aortic valve is sclerotic. No aortic regurgitation or stenosis. There is mitral annular calcification. Mild mitral regurgitation. Mild tricuspid regurgitation. Pulmonary artery pressure of 30 mmHg. There is no pericardial effusion. <ELECTRONICALLY SIGNED> By: Delfino Crane MD, FACC 09/09/18 1446 1446 1446 Delfino Crane MD, FACC /INF
[2018-09-09 19:49] VITALS: BP 136/63
--- NOTE | 2018-09-10 04:55 | NUR ---
Assumed pt care at 0700,pt A/OX3,german speaking only but able to make needs known.Family at the bedside and helping with interpretation.Up with AX1-2 to BSC and prefers to go the BR for BM's,passing flatus no BM yet.Denies N/V,voiding adequate amount. C/o abdominal pain and feeling like she wants to have a BM,medicated with Tylenol at this time will monitor for effectiveness.IV fluids/abts infusing via LFA IV without any problems. Noticed pt seems not to be seing well,on asking family reports she has Glaucoma not on her PMH,will update accordingly. Reports she normally gets 2 different eye drops at home checked her unreconcilled med history and the eye gtts are there. Call made to ADMISSIONS OFFICER for orders awaiting call back. Fall precautions in place,call light/personal items within reach.Will continue to monitor pt.
[2018-09-10 05:43] LABS: HEMATOCRIT 33.3 % (37.0-47.0); HEMOGLOBIN 11.7 gm/dL (12.0-15.0); MCHC 35.2 g/dL (28.0-37.0); RBC 3.78 mil/uL (4.20-5.00); RDW 13.6 % (10.5-14.5); WBC 8.1 thou/uL (4.0-11.0)
[2018-09-10 05:58] LABS: ALBUMIN 2.6 g/dL (3.4-5.0); CALCIUM 7.7 mg/dL (8.5-10.1); CREATININE 0.9 mg/dL (0.6-1.0); POTASSIUM 3.3 mmol/L (3.5-5.1); TOTAL BILIRUBIN 0.8 mg/dL (<0.1-1.0); TOTAL PROTEIN 5.5 g/dL (6.4-8.2)
[2018-09-10 07:45] VITALS: BP 146/73
[2018-09-10 07:50] VITALS: BP 146/73
[2018-09-10] MEDS ORDERED: AUGMENTIN 875-1 EACH PO (08:57)
--- NOTE | 2018-09-10 10:34 | NUR ---
ASSUME CARE OF PT AT 0715; PT A0X4; PT IS ALBANIAN SPEAKING BUT COOPERATIVE WITH NURSES; PATIENTS FAMILY IS WITH PATIENT AND DAUGHTER CAN SPEAK CITIZEN OF [place] AND [place]; WILL CONTINUE TO MONITOR
--- NOTE | 2018-09-10 10:45 | NUR ---
I AGREE WITH NURSING ASSESSMENT DONE BY ZACKERY/KENTON.
[2018-09-10 10:47] VITALS: BP 148/73
--- NOTE | 2018-09-10 11:48 | NUR ---
PATIENT IS DISCHARGED WITH DAUGHTER AND TO HOME; PATIENTS IV ACCESS HAS BEEN REMOVED; PATIENT BEEN GIVEN DISCHARGE DOCUMENTATION AND PERSCRIPTION FOR ANIBIOTIC;
== END 2018-09-10 12:00 | disposition home or self-care (01) | DRG 446 ==
LOC: ER 16:54 → SICU 19:45 → EROBS 19:45 → 4E 21:03 → SICU 09-08 13:01 → ENTRNSPT 09-10 11:47 → EDTRNSPTSTS 09-10 11:53 → SICU 09-10 12:00
PROVIDERS: Nurse Practitioner Family; Physician Assistant; Surgery; ADMIT Hospitalist
DX: K81.0 Acute cholecystitis (principal); I25.10 Atherosclerotic heart disease of native coronary artery without angina pectoris; I25.5 Ischemic cardiomyopathy; I27.20 Pulmonary hypertension, unspecified; E78.00 Pure hypercholesterolemia, unspecified; M19.90 Unspecified osteoarthritis, unspecified site; E11.22 Type 2 diabetes mellitus with diabetic chronic kidney disease; N18.9 Chronic kidney disease, unspecified; E11.42 Type 2 diabetes mellitus with diabetic polyneuropathy; I08.1 Rheumatic disorders of both mitral and tricuspid valves; I12.9 Hypertensive chronic kidney disease with stage 1 through stage 4 chronic kidney disease, or unspecified chronic kidney disease; I25.2 Old myocardial infarction; Z95.5 Presence of coronary angioplasty implant and graft; Z79.02 Long term (current) use of antithrombotics/antiplatelets; Z79.4 Long term (current) use of insulin; Z79.82 Long term (current) use of aspirin; Z79.899 Other long term (current) drug therapy; Z88.8 Allergy status to other drugs, medicaments and biological substances; Z83.3 Family history of diabetes mellitus; Z82.49 Family history of ischemic heart disease and other diseases of the circulatory system
CPT/HCPCS: 10183; 15002

== ENCOUNTER 2018-09-15 15:52 | Inpatient (IN) | payer OTHER ==
[~2018-09-15] VITALS: Ht 147.3 cm; Wt 55.6 kg
--- NOTE | ~2018-09-15 | HC ---
[facility] [place] [address] CONSULTATION Name: MARY LUKE Room #: 219-P ADM IN M.R.#: [id number] Admission: 09/15/18 Attend Phys: Jonelle Branch MD Discharge: Date of : 39 Report #: [id number] THIS REPORT FOR: //name// CC: FAM unknown Jonelle Branch DATE OF SERVICE: 09/16/2018 HISTORY OF PRESENT ILLNESS: The patient is a 78-year-old female, non-Armenian speaking, admitted with expressive aphasia or speech difficulties. 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 There is a question as to whether this stroke is cardioembolic. Neurology is involved as well as Cardiology. We are seeing her in rehabilitation medicine consultation. PAST MEDICAL HISTORY: Includes diabetes mellitus, hypertension, recent acute cholecystitis. She has had a recent acute inferior lateral NC with coronary stenting, history of peripheral neuropathy. MEDICATIONS: Please see the full medication listing. SOCIAL HISTORY: The patient and her live with their granddaughter. She used a walker to get around. The granddaughter works. The patient's would not be able to give her much assistance. There are other family members in the area that could assist, although one of the daughters told me that they would consider looking for a paid help if need be while everyone worked. 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 No current complaints of chest pain, shortness of breath or abdominal discomfort. PHYSICAL EXAMINATION: GENERAL: A 78-year-old female in no obvious distress. VITAL SIGNS: Last recorded temperature 99.4, pulse 78, respirations 16, blood pressure 127/68. NEUROLOGIC: The patient is Chinese speaking. She was looking around the room and I can get her to fix and follow, but she does have the decreased vision as noted by family. Facies appeared symmetric. Functional range of motion of both upper and lower extremities, I would grade her strength at a 3+/5. It was difficult to get her to actually participate with manual muscle testing as I am uncertain if she understood what I was asking. Her daughter was there as an deaf interpreter. There is no calf swelling. Tone appeared normal or maybe somewhat decreased. ASSESSMENT: A 78-year-old female with the following problem list: 1. 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 2. Speech difficulties noted with expressive aphasia. 3. Apparent functional decline, although will need to see how she does in [address] [address] CONSULTATION Name: MARY LUKE Room #: 219-P [facility] IN M.R.#: [id number] Admission: 09/15/18 Attend Phys: Jonelle Branch MD Discharge: Date of : 39 Report #: [id number] therapies. 4. Recent acute inferior lateral myocardial infarction with coronary stenting. 5. Diabetes mellitus. 6. Hypertension. 7. Recent acute cholecystitis. PLAN: Therapy evaluations are underway. We will need to see how she does with her therapies and proceed from there. Discussion done with the patient's daughters. By: 1308 0142 Julio Black MD /PMT
[~2018-09-15 15:52] MED LIST changes: +ASPIRIN81 M2 PO; +AUGMENTIN 875-1 EACH PO; +COMBIGAN EYE DR10 ML OPHTHALMIC; +LEVEMIR FL100 UNIT/2 SUBQ; +LOSARTAN POTASS50 MG PO
[2018-09-15 15:53] VITALS: BP 149/75
[2018-09-15 16:28] LABS: POC CA IONIZED 4.4 mg/dL (4.5-5.3); POC CREATININE 0.9 mg/dL (0.6-1.3); POC HEMOGLOBIN 12.9 g/dL (12.0-15.0); POC POTASSIUM 3.5 mmol/L (3.5-5.1)
[2018-09-15 16:32] LABS: ABSOLUTE NEUTROPHILS 6.3 thou/uL (1.4-8.2); BASOPHILS 0.4 % (0.0-2.0); EOSINOPHILS 0.9 % (0.0-3.0); HEMATOCRIT 38.5 % (37.0-47.0); HEMOGLOBIN 13.1 gm/dL (12.0-15.0); LYMPHOCYTES 16.8 % (24.0-44.0); MCH 30.6 pg (26.0-34.0); MCHC 33.9 g/dL (28.0-37.0); MCV 90.2 fL (80.0-100.0); MONOCYTES 6.6 % (1.0-8.0); PLATELET COUNT 154 thou/uL (150-400); POLYS 75.3 % (36.0-66.0); RBC 4.26 mil/uL (4.20-5.00); RDW 13.8 % (10.5-14.5); WBC 8.4 thou/uL (4.0-11.0)
[2018-09-15 16:50] LABS: CALCIUM 8.6 mg/dL (8.5-10.1); CREATININE 1.1 mg/dL (0.6-1.0); POTASSIUM 3.5 mmol/L (3.5-5.1)
[2018-09-15 16:58] LABS: TOTAL BILIRUBIN 0.8 mg/dL (<0.1-1.0); TOTAL PROTEIN 6.4 g/dL (6.4-8.2)
[2018-09-15 16:59] LABS: URINE BILIRUBIN NEGATIVE (Negative); URINE BLOOD NEGATIVE (Negative); URINE CLARITY CLEAR; URINE COLOR YELLOW; URINE GLUCOSE-RANDOM* NEGATIVE (Negative); URINE KETONES 1+ (Negative); URINE LEUKOCYTES-REFLEX NEGATIVE (Negative); URINE NITRITE-REFLEX NEGATIVE (Negative); URINE PROTEIN (DIPSTICK) TRACE (Negative); URINE SPECIFIC GRAVITY 1.025 (1.005-1.035)
[2018-09-15 17:00] LABS: TROPONIN-I 2.51 ng/mL (<0.06)
[2018-09-15 19:12] VITALS: BP 142/69
[2018-09-15 19:53] LABS: CHOLESTEROL 140 mg/dL (<200); HDL CHOLESTEROL 44 mg/dL (>40); LDL CHOLESTEROL 80 mg/dL (<100); TC:HDL 3.2 Ratio (Not establshd); TRIGLYCERIDE 84 mg/dL (<150); VLDL 17 mg/dL (<40)
[2018-09-15 19:55] VITALS: BP 154/87
[2018-09-15 21:15] VITALS: BP 146/94
[2018-09-16 00:38] VITALS: BP 124/67
--- NOTE | 2018-09-16 03:12 | NUR ---
PT ARRIVED FROM ER AROUND 2029. VSS, SLIGHTLY ELEVATED TEMP OF 99.6. AND BP IN 140s. PT WAS ALERT AND AWAKE. SHE COULD ONLY SAY HER FIRST NAME AND STATED THAT SHE WAS HUNGRY. PT IS SR ON MONITOR, TELE STRIP IN CHART. ALMOST INCONCLUSIVE NIH SCALE ASSESSMENTS PT SAID " NO, OR I DONT KNOW" TO MOST COMMANDS. PT HOWEVER PASSED THE BESIDE SWALLOW STUDY, SHE WAS ABLE TO SWALLOW SIPS AND A GULP OF WATER WITHOUT CHOCKING, TEARY EYE OR DISCOMFORT. PT WAS ABLE TO GET UP WITH 2 ASSIST TO THE BEDSIDE COMMODE. IV CAME OUT, THIS AM, NEW IV PLACED. PT APPEARS TO BE IN NO APPARENT DISTRESS. FAMILY IS STILL IN ROOM, WILL CONTINUE TO MONITOR PER POC
[2018-09-16 03:46] VITALS: BP 140/67
[2018-09-16 03:50] LABS: CALCIUM 8.2 mg/dL (8.5-10.1); POTASSIUM 3.4 mmol/L (3.5-5.1)
[2018-09-16 04:14] LABS: HEMATOCRIT 35.1 % (37.0-47.0); MCH 30.6 pg (26.0-34.0); MCHC 34.2 g/dL (28.0-37.0); MCV 89.4 fL (80.0-100.0); RBC 3.92 mil/uL (4.20-5.00); RDW 13.6 % (10.5-14.5); WBC 7.5 thou/uL (4.0-11.0)
[2018-09-16 07:14] VITALS: BP 127/68
--- NOTE | 2018-09-16 08:15 | NUR ---
PT DIVEHI SPEAKING ONLY. ZABRINA AT BEDSIDE AND TRANSLATING. PT WILL HAVE MRI BRAIN THIS AM.
--- NOTE | 2018-09-16 08:22 | EKG ---
[address] [address] ELECTROCARDIOGRAM REPORT Name: MARY LUKE Room #: 219-P ADM IN M.R.#: [id number] Admission: 09/15/18 Attend Phys: Jonelle Branch MD Discharge: Date of : 39 Report #: [id number] THIS REPORT FOR: //name// [facility] ED Test Date: 2018-09-15 Test Time: 17:05:19 Pat Name: MARY LUKE Department: Room: 219 P Gender: F Detective [employer]: Arthur JIMENEZ RN : 1940 Requested By: Wagner Garza Order Number: [id number] MD: Delfino Crane Measurements Intervals [place] Rate: 75 P: 132 CO: 147 QRS: -42 QRSD: 89 T: -36 QT: 427 QTc: 477 Interpretive Statements Sinus rhythm Inferolateral infarct, age indeterminate Baseline wander in lead(s) I,II,aVR,aVF Compared to ECG 09/08/2018 09:30:00 No significant changes Electronically Signed On 09-16-2018 8:22:00 DAYLIGHT DRILLER by Delfino Crane [email or web address] <ELECTRONICALLY SIGNED> By: Delfino Crane MD, [facility] 09/16/18 0822 1705 1705 Delfino Crane MD, [facility] /EPI
--- NOTE | 2018-09-16 09:15 | NUR ---
PT OFF UNIT TO MRI.
--- NOTE | 2018-09-16 09:54 | HC ---
[facility] [place] [address] CONSULTATION Name: MARY LUKE Room #: 219-P ADM IN M.R.#: [id number] Admission: 09/15/18 Attend Phys: Jonelle Branch MD Discharge: Date of : 39 Report #: [id number] THIS REPORT FOR: //name// CC: FAM unknown Jonelle Branch DATE OF SERVICE: 09/15/2018 HISTORY OF PRESENT ILLNESS: This is a 78-year-old female patient who was evaluated by me in the Emergency Room. The patient was not able to provide any history at all. I talked to the family who provided history. The history is that this patient got up this morning, and she was having speech difficulty. She lives with her granddaughter, who was not here, but when the other family member came, they noticed pretty significant speech difficulty, but from all indication, it would look like this patient woke up with speech difficulty. When she went to the bed last night, she was not having any speech difficulty. She had an MRI in May, and she had a problem with the gallbladder, but she was told that she cannot have any surgery because of the cardiac problems. She did have a CT scan of the head that showed what looks like old strokes in this patient. REVIEW OF SYSTEMS: Indicates that this patient had an NC. She also had a problem with the gallbladder. She has been into this hospital. Record indicates she has a mild ischemic cardiomyopathy. She is a diabetic. PAST MEDICAL HISTORY: Positive for a recent NC. FAMILY HISTORY: Unremarkable. SOCIAL HISTORY: She has a large family. She speaks Bermudian only. PHYSICAL EXAMINATION: Very difficult to carry out. I attempted multiple times, but she has difficulty following commands. This is in spite of the fact that we did a Bermudian translation. Family thinks her speech is all garbled. We cannot tell about the focal deficit when I tried to do the visual field, she does count fingers pretty randomly, so I do not know whether she can see at all or not. This patient's finding was consistent with a stroke. It was a wakeup stroke, and even then she came to Emergency Room pretty late. Because of that she was not a TPA candidate because she was way outside the window for both 3-hour and 4-1/2 hour. I asked the Emergency Room to proceed with CT angiogram to see if we can find any intervention which may be appropriate for this patient, even if the symptoms time of onset should be considered yesterday. CT angiogram was done. It confirmed the stroke, but there is no blood clot in the poarch of [place] and only mild atherosclerotic disease in internal carotid artery. Because of that, the patient is not any intervention candidate. Therefore, she [address] [address] CONSULTATION Name: MARY LUKE Room #: 219-P [facility] IN M.R.#: [id number] Admission: 09/15/18 Attend Phys: Jonelle Branch MD Discharge: Date of : 38 Report #: [id number] was not found to be TPA candidate or intervention candidate. As I said, it was a wakeup stroke, and she was way outside the window for 3 hours or 4-1/2 hour for TPA and no clot could be retrieved because CT angiogram was unremarkable, and hence she was not a clot retrieval candidate. Unfortunately, nothing could be done. She is already on aspirin and Plavix. It is not clear when was the last dose, but in any event, both aspirin and Plavix should be still in the system, and we should restart it, and we will do the full consultation in the morning when Dr. Cam will see this patient. I discussed all of it with the patient's family in detail earlier today. <ELECTRONICALLY SIGNED> By: Yg Lemos MD 09/16/18 0954 0217 0831 Yg Lemos MD /nt
--- NOTE | 2018-09-16 10:50 | 2DMMODE ---
[facility] [place] [address] 2 D/M-MODE ECHOCARDIOGRAM Name: MARY LUKE Room #: 219-P ADM IN M.R.#: [id number] Admission: 09/15/18 Attend Phys: Jonelle Branch MD Discharge: Date of : 38 Date of Service: 09/16/18 1050 Report #: [id number] THIS REPORT FOR: //name// APPROVED REPORT Study performed: 09/16/2018 10:01:38 EXAM: Comprehensive 2D, Doppler, and color-flow Echocardiogram Patient Location: Bedside Room #: 219 Status: routine BSA: 1.37 HR: 83 bpm BP: 127/68 mmHg Rhythm: NSR Other Information Study Quality: Good Indications CVA/TIA Echo Enhancing Agent Indication: Rule out Shunt Agent(s) / Amount(s) Used: Agitated Saline 7 cc Left Ventricle The left ventricle is normal size. There is normal LV segmental wall motion. There is normal left ventricular wall thickness. The left ventricular systolic function is normal. The left ventricular ejection fraction is within the normal range. LVEF is 50-55%. Right Ventricle The right ventricle is normal size. The right ventricular systolic function is normal. Atria The left atrium size is normal. Interatrial septum is intact without evidence of ASD or PFO. The right atrium size is normal. Aortic Valve The aortic valve is normal in structure. Mitral Valve The mitral valve is normal in structure. There is mitral annular [facility] [address] [place] [address] 2 D/M-MODE ECHOCARDIOGRAM Name: MARY LUKE Room #: 219-P ADM IN M.R.#: [id number] Admission: 09/15/18 Attend Phys: Jonelle Branch MD Discharge: Date of : 38 Date of Service: 09/16/18 1050 Report #: [id number] calcification. The mitral valve chordae are thickened and/or calcified. There is systolic anterior motion of the mitral valve. The mitral valve is normal in structure and function. Mitral valve is normal in structure. Tricuspid Valve The tricuspid valve is normal in structure. Pulmonic Valve Pulmonic valve is not well visualized. Great Vessels The aortic root is normal in size. IVC is normal in size and collapses >50% with inspiration. Pericardium There is no pericardial effusion. <Conclusion> The left ventricle is normal size. LVEF is 50-55%. The aortic valve is normal in structure. The mitral valve is normal in structure. The tricuspid valve is normal in structure. Pulmonic valve is not well visualized. Interatrial septum is intact without evidence of ASD or PFO. There is no pericardial effusion. <ELECTRONICALLY SIGNED> By: iDno Coto MD 09/16/18 1050 1050 1050 Dino Coto MD /INF
[2018-09-16 11:35] VITALS: BP 153/82
--- NOTE | 2018-09-16 14:42 | NUR ---
PT ONEYDA NOT LIKE FOOD AT HOSPITAL INSTRUCT FAMILY TO BRING IN WHAT SHE CAN EEAT.
[2018-09-16 20:08] VITALS: BP 119/43
[2018-09-17 01:07] LABS: GLYCOHEMOGLOBIN (HGB A1C) 8.6 % (4.8-5.6)
--- NOTE | 2018-09-17 04:52 | NUR ---
ASSUMED CARE AT 1900. PT AO X 2. VITAL SIGNS STABLE. PT DAUGHTER AT BEDSIDE, FACILITATING TRANSLATION. PT DAUGHTER REPORTED THAT PT HAS BEEN HAVING HARD TIME SLEEPING FOR A FEW DAYS. MELATONIN 10MG ORDER OBTAINED. STILL EXHIBITNG SLURRED SPEECH, BUT NON OUT THE BASELINE PER THE DAUGHTER. PT WAS USING BEDSIDE COMMODE BUT COULD NOT TRANSFER LAST NIGHT DUE TO WEAKNESS. OFFERED BEDPAN. PT WORKING WITH PT/OT. WILL CONTINUE TO MONITOR.
[2018-09-17 05:28] VITALS: BP 147/85
[2018-09-17 08:00] VITALS: BP 147/58
[2018-09-17 12:00] VITALS: BP 119/76
[2018-09-17 16:00] VITALS: BP 126/65
--- NOTE | 2018-09-17 16:00 | NUR ---
PT HAS REFUSED MOST OF HER MEALS TODAY...FAMILY ENCOURAGED TO TRY TO ENCOURAGE HER TO EAT...WILL MONITOR..
--- NOTE | 2018-09-17 16:12 | NUR ---
met with dtr, patient and patients spouse in room. IP TECHNOLOGY TRANSACTIONS ATTORNEY patient living with granddtr. Dtr reports patient will be staying with her at dc or other family they are discussing. Dtr Valery's home has no steps. Patient has walker for use at home. requested 5N eval for vito 5N. [facility]. Casemgt to give resources to dtr for possible private dty at home. Casemgt following.
[2018-09-17 19:14] VITALS: BP 131/63
--- NOTE | 2018-09-18 03:26 | NUR ---
ASSUMED CARE AT 1900. PT A0 X 1. DAUGHTER REPORTS INCREASED CONFUSION. PT UNABLE TO ANSWER SOME QUESTIONS. FOR EXAMPLE, WHEN PATIENT WAS ASKED ABOUT TIME, PLACE, AND SITUATION, SHE KEPT REPEATING HER DATE OF . DAUGHTER REPORTS THE FOLLOW UP CONVERSATIONS WERE INCOHERENT AND NONSTOP TALKING. STILL EXHIBIT WEAKNESS IN BOTH LOWER AND UPPER EXTREMITIES. PUPILS SLUGGISH IN REACTION. NO C/O OF HEADACHE REPORTED PATIENT MOST LIKELY WILL BE DISCHARGING HOME FAMILY, AND WOULD LIKE SOME DOCUMENTATION TO OBTAIN A HANDCAP PASS. WILL CONTINUE TO FOLLOW POC.
[2018-09-18 04:01] VITALS: BP 129/63
[2018-09-18 04:29] LABS: CREATININE 0.9 mg/dL (0.6-1.0)
[2018-09-18 04:32] LABS: POTASSIUM 2.9 mmol/L (3.5-5.1)
[2018-09-18 04:33] LABS: TROPONIN-I 2.27 ng/mL (<0.06)
[2018-09-18 04:42] LABS: HEMATOCRIT 33.5 % (37.0-47.0); HEMOGLOBIN 11.5 gm/dL (12.0-15.0); MCH 30.9 pg (26.0-34.0); MCHC 34.3 g/dL (28.0-37.0); RBC 3.72 mil/uL (4.20-5.00); RDW 14.2 % (10.5-14.5)
[2018-09-18 09:13] VITALS: BP 153/78
--- NOTE | 2018-09-18 11:04 | NUR ---
TALKED TO PATIENT AND HER DAUGHTER ABOUT PARTICIPATION IN THERAPIES AND THE NEED FOR THE PATIENT TO ACTIVELY WORK WITH ALL THERAPIES TO SHOW THAT SHE IS ABLE TO TOLERATE 3H/DAY ON 5N. PATIENT KEPT HER EYES CLOSED DURING THIS INTERACTION, BUT WAS MOVING BOTH ARMS IN THE BED, AND WAS ABLE TO TELL HER DTR THAT HER HAND WAS HURTING WHILE THE IV POTASSIUM WAS INFUSING. NOTIFIED RN OF PT'S C/O PAIN, AND SHE STATED THAT SHE WOULD INCREASE THE FLUSH FLUID. RETURNED TO PATIENT AND DTR AND OCCUPATIONAL THERAPIST WERE TALKING ABOUT OT TREATMENT. WILL FOLLOW THIS PATIENT. NOTIFIED SW OF ALL ABOVE AND ANTICIPATED BED AVAILABILITY FOR SUNDAY, PENDING PT TOLERANCE WITH THERAPIES WHILE IN CCU.
[2018-09-18 11:51] VITALS: BP 133/66
[2018-09-18 15:57] VITALS: BP 140/87
[2018-09-18 16:00] VITALS: BP 130/64
[2018-09-18 19:45] VITALS: BP 141/74
--- NOTE | 2018-09-18 19:54 | NUR ---
ASSUMED CARE OF PT AT APPROX 0700. ASSESSMENT CHARTED. FAMILY UPDATED ON POC. FAMILY MEETING ENCOURAGED. PT REFUSING TO EAT. DENIES PAINA ND SOA. MOVED IV LOCATION SITE PER FAMILY REQUEST, FELT IV LOCATION IN LEFT HAND WAS INPAIRING ABILITY TO USE HAND. WILL CONTINUE TO MONITOR.
[2018-09-19 04:23] VITALS: BP 139/76
[2018-09-19 07:16] VITALS: BP 152/82
--- NOTE | 2018-09-19 07:53 | NUR ---
ASSUME CARE 1900. PT/VITALS STABLE. DENIES ANY PAIN. MODERATE TOLERANCE TO ACTIVITY. AMBULATE TO DOOR WITH WALKER AND GAIT BELT AND BACK TO BED WITH MAX ASSIST. PROGRESSING WELL WITH POC. PLAN IS POSSIBLE DISCHARGE TO FOR [facility] WHEN STABLE. ASSESSMENT CHARTED. WILL CONTINUE TO FOLLOW AND MONITOR WITH POC
--- NOTE | 2018-09-19 08:44 | NUR ---
Assistant Center Manager visited with the pt and her dtr Valery at bedside yesterday afternoon. Assistant Center Manager provided sr blue book, handicapp application, private duty brochures, and the [place] [employer] net packet. Resources reviewed. Dtrs Valery and Shelia to talk and coordinate who will be caring for the pt at [place] and providing 24hr care. 5N discussed as an opportunity for the pt to improve her mobility and family to be trained on how to help care for the pt at home. Support provided. Most family members work and they will need to put together a plan and schedule for 24 hr care. They are getting the name of the pt's pcp as she goes to a clinic in [place]. [facility] may be able to provide a few vito visits for hh providing the pt has a pcp. Family to look for second hand dme as recommended by therapy. Will follow.
[2018-09-19 11:25] VITALS: BP 127/75
--- NOTE | 2018-09-19 15:03 | NUR ---
Metal Roofing Mechanic visited with the pt's spouse at bedside. He speaks Occitan only. He indicates that she ate a few bites of food for him. His grandson will be back later today to pick him up. Metal Roofing Mechanic spoke with Maty Rasmussen to arrange a meeting with her and maty Bass at 8:30 am tomorrow. She stated that they will be here in the morning to meet with the rehab liason to discuss possible 5N rehab stay for family training. They would like to see how she does with PT/OT and ST again before accepting as she has refused tx at times today and yesterday. Maty Rasmussen is requesting a verification letter for her employer. All parties updated. Will follow.
[2018-09-19 16:12] VITALS: BP 139/65
--- NOTE | 2018-09-19 18:49 | NUR ---
ASSESSMENT CHARTED. PT ALERT AND ORIENTED TO SELF. VSS. DENIED HAVING PAIN. PARTICIPATED IN PHYSICAL THERAPY. UP IN THE CHAIR FOR A SHORT TIME THIS AM. FAMILY UPDATED ON PT'S PROGRESS. WILL CONTINUE TO MONITOR.
[2018-09-19 20:15] VITALS: BP 137/85
[2018-09-20 04:30] VITALS: BP 146/62
--- NOTE | 2018-09-20 05:45 | NUR ---
[facility] C[facility] 1900. PT/VITALS STABLE. FAMILY IN WITH PT. FALL RPECAUTIONS IN PLACE. ASSESSENT CHARTED. SR ON MONITOR. PT INCONTINENT/VOIDING ADEQUATELY. PROGRESSING WELL WITH POC. POOR AP[PETITE NOTED. ON D5W. WILL CONTINUE TO MONITOR AND FOLLOW WITH POC
[2018-09-20 07:35] VITALS: BP 130/69
[2018-09-20] MEDS ORDERED: ASPIRIN325 PO (09:55)
[2018-09-20] MEDS ORDERED: MELATONIN5 M1 PO (09:55)
[2018-09-20 11:17] VITALS: BP 147/85
[2018-09-20 12:12] LABS: CALCIUM 7.9 mg/dL (8.5-10.1); CREATININE 0.9 mg/dL (0.6-1.0); MAGNESIUM 1.4 mg/dL (1.8-2.4); POTASSIUM 3.2 mmol/L (3.5-5.1)
--- NOTE | 2018-09-20 13:10 | NUR ---
Family here this am and met with the rehab team. All parties in agreement that pt would benefit as well as family for training. Pt did partcipate in therapy today. Family is providing support and encouragement. Family to workout schedule with the therapists so they can be with the pt for her treatment sessions. 5N cm updated. Family to work on getting dme in place and coordinating their work schedules. Letter provided to dtr Valery for her employer as she has to miss work today.
[2018-09-20] MEDS ORDERED: AMOXIL 875 MG875 M1 PO (22:02)
[2018-09-20] MEDS ORDERED: TYLENOL325 MG PO (22:03)
[2018-09-20] MEDS ORDERED: XALATAN2.5 ML OPHTHALMIC (22:04)
[2018-09-20] MEDS ORDERED: ASPIR 8181 MG PO (22:22)
== END 2018-09-20 13:58 | DRG 65 ==
LOC: ER 15:52 → EROBS 18:51 → 2N 18:51
PROVIDERS: Emergency Medicine; Nurse Practitioner Family; ADMIT Internal Medicine
DX: I63.9 Cerebral infarction, unspecified (principal); K81.0 Acute cholecystitis; F05 Delirium due to known physiological condition; I10 Essential (primary) hypertension; R47.01 Aphasia; E11.42 Type 2 diabetes mellitus with diabetic polyneuropathy; H40.9 Unspecified glaucoma; H54.8 Legal blindness, as defined in USA; F03.90 Unspecified dementia, unspecified severity, without behavioral disturbance, psychotic disturbance, mood disturbance, and anxiety; E87.6 Hypokalemia; G93.89 Other specified disorders of brain; I25.5 Ischemic cardiomyopathy; I25.10 Atherosclerotic heart disease of native coronary artery without angina pectoris; E78.00 Pure hypercholesterolemia, unspecified; I25.2 Old myocardial infarction; Z95.5 Presence of coronary angioplasty implant and graft; Z79.02 Long term (current) use of antithrombotics/antiplatelets; Z79.4 Long term (current) use of insulin; Z79.82 Long term (current) use of aspirin; Z79.899 Other long term (current) drug therapy; Z82.49 Family history of ischemic heart disease and other diseases of the circulatory system; Z83.3 Family history of diabetes mellitus
CPT/HCPCS: 10081

== ENCOUNTER 2018-09-20 11:24 | Inpatient (IN) | payer OTHER ==
[~2018-09-20] VITALS: Ht 152.4 cm; Wt 48.7 kg
--- NOTE | ~2018-09-20 | H ---
[facility] [place] [address] HISTORY AND PHYSICAL Name: MARY LUKE Room #: 506-1 ADM IN M.R.#: [id number] Admission: 09/20/18 ������������������ Attend Phys: Julio Black MD Discharge: ������������������ Date of : 38 Report #: [id number] THIS REPORT FOR: //name// CC: Julio Black [facility] unknown DATE OF SERVICE: 09/20/2018 POSTADMISSION PHYSICIAN EVALUATION Please see the admission dictation from Nancy Ibarra. VITAL SIGNS: Temperature 37.8, pulse 98, respirations 20, blood pressure 154/75. HISTORY OF PRESENT ILLNESS: The patient was admitted for acute in-hospital inpatient rehabilitation. She is Bahraini speaking, has expressive aphasia, legally blind. She is on low endurance rehab for tolerance issues. Her MRI confirmed multiple acute subacute ischemic infarcts largest infarct within the left posterior temporoparietal region and in the right occipital lobe. She has not been admitted for acute in-hospital inpatient rehabilitation. PHYSICAL EXAMINATION: NEUROLOGIC: She was pleasant, appeared somewhat confused, although it is difficult with the language barrier, will follow basic commands. CHEST: Sounded clear to auscultation. CARDIOVASCULAR: Regular rate and rhythm. ABDOMEN: Bowel sounds positive, nontender. EXTREMITIES: Functional range of motion of upper extremities, although somewhat difficult to get her to fully participate. She has been needing mod assist for basic transfers. ASSESSMENT: 1. 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 2. Expressive aphasia. 3. Stable encephalomalacia. 4. Myocardial infarction with recent stents, 07/23/2018. 5. Recent acute cholecystitis, will need eventual cholecystectomy. 6. Type 2 diabetes mellitus. 7. Hypertension. 8. Hyperlipidemia. PLAN: The patient is admitted for acute in-hospital inpatient rehabilitation. Please see the full history and physical dictation. She was seen earlier. From a postadmission physician evaluation perspective, there are no relevant changes [facility] [address] [place] [address] HISTORY AND PHYSICAL Name: MARY LUKE Room #: 506-1 ADM IN [facility].#: [id number] Admission: 09/20/18 ������������������ Attend Phys: Julio Black MD Discharge: ������������������ Date of : 38 Report #: [id number] since the preadmission screening. Please see the above review of prior and current medical and functional conditions and comorbidities. Initial plan of care involves the interdisciplinary acute inpatient rehabilitation program with the goal of maximizing her functional independence, so she can hopefully return back to her prior living situation. Prognosis is reasonably good. We will need to see how she tolerates the acute rehab program. Potential barriers would include her severity of the stroke and her multiple medical comorbidities. She does have supportive family. The overall plan of care is based on preadmission screening. ADDENDUM OVERALL PLAN OF CARE: 1. Estimated length of stay is a 2 weeks period as discussed prior with family. 2. Medical prognosis is reasonably good. 3. Anticipated interventions include the interdisciplinary acute inpatient rehabilitation program with PT, OT, and speech and the interdisciplinary rehabilitation team. 4. Anticipated functional outcomes would be to improve her functional mobility and ADL and cognition. Overall function, so that she can return back home. 5. Discharge destination is home with family. 6. Expected therapy by discipline includes PT, OT and speech 1 hour per day each 5 days a week throughout the duration of the acute inpatient rehabilitation program. She will be on a low endurance program with the severity of her accident. ��������������������������������������������� ���������������������������������������� By: ��������������������������������������������� [id number] Julio Black MD /nt
[~2018-09-20 11:24] MED LIST changes: +MELATONIN5 M1 PO
--- NOTE | 2018-09-20 13:18 | NUR ---
chart review, pt is to come to 5n acute rehab after lunch. cm visited with daughter blake and granddaughter via phone call. intro to dcp, rehab and transition of care. imer dodge is panamanian. children speak hungarian. per chart and daughter " she was completely independent prior to hospital, was able to care for great grand babies, lived with granddaughter and her . plan to stay with at daughter house because no steps. has walker and bath bench."/chart. will cont following as needed for dc needs. pt will need to cont working with rehab, family will need training prior to dc home.
[2018-09-20 14:05] VITALS: BP 142/76
--- NOTE | 2018-09-20 15:34 | NUR ---
PT ARRIVED AT 1400. ORIENTED TO SELF ONLY. PT IS MALAGASY SPEAKING. DAUGHTER HELPING WITH INTERPRETATION DURING ADMISSION. SOME ADMISSION QUESTIONS UNABLE TO ANSWER UNTIL WE CAN GET AN HAZMAT TECHNICIAN. VITALS STABLE. SKIN IS INTACT. DENIES PAIN. PT CAME VIA BED, MAX ASSIST TRANSFERS. Q2H REPOSITIONS. HAD EYES CLOSED THROUGHOUT THE ADMISSION PROCESS, UNABLE TO DETERMINE VISION. EXPRESSIVE APHASIA NOTED WITH COMMUNICATION. AT BEDSIDE. Q1H VISUAL CHECKS. CALL LIGHT WITHIN REACH. FALL PRECAUTIONS IN PLACE
[2018-09-20 19:25] VITALS: BP 136/80
[2018-09-20] MEDS ORDERED: AMOXIL 875 MG875 M1 PO (22:02)
[2018-09-20] MEDS ORDERED: TYLENOL325 MG PO (22:03)
[2018-09-20] MEDS ORDERED: XALATAN2.5 ML OPHTHALMIC (22:04)
[2018-09-20] MEDS ORDERED: ASPIR 8181 MG PO (22:22)
--- NOTE | 2018-09-21 00:30 | NUR ---
PT ALERT, KEEPS EYES CLOSED AND DOES NOT SPEAK TO STAFF. WILL ANSWER QUESTIONS WHEN DAUGHTER IS HERE TO INTERPRET. PT DENIES PAIN OR DISCOMFORT. INCONT OF URINE IN LARGE AMTS. BLOOD SUGAR 252 AT HS. INSULIN GIVEN ORDERED. HERE DURING THE NIGHT. BED ALARM ON FOR SAFETY. PT TURNED Q2H. APPEARS TO BE SLEEPING IN BETWEEN TURNS.
[2018-09-21 05:40] LABS: HEMOGLOBIN 12.9 gm/dL (12.0-15.0); MCH 31.1 pg (26.0-34.0); MCHC 34.9 g/dL (28.0-37.0); MCV 89.2 fL (80.0-100.0); RBC 4.15 mil/uL (4.20-5.00); RDW 14.6 % (10.5-14.5); WBC 10.4 thou/uL (4.0-11.0)
[2018-09-21 05:45] LABS: CALCIUM 8.4 mg/dL (8.5-10.1); POTASSIUM 3.4 mmol/L (3.5-5.1)
[2018-09-21 07:30] VITALS: BP 154/75
--- NOTE | 2018-09-21 10:19 | NUR ---
ASSUMED CARE AT 0700. PATIENT IS RESTING QUIETLY IN BED ON HER LEFT SIDE. DAUGHTER HERE AND ATTEMPTED TO TRANSLATE FOR S.T. AND NURSING AT THAT TIME. MEDS WERE CRUSHED AND PUT IN PUDDING. PATIENT TOOK MEDS PO CRUSHED AND PUT INTO PUDDING. PATIENT WAS SET UP FOR BREAKFAST AND DAUGHTER ATEMPTED TO FEED HER MOTHER WITHOUT SUCESS. PATIENT HAS LEFT FOREARM S.L. THAT IS PATENT AND INTACT. PATIENT SPEAKS ONLY COOK ISLANDER. PATIENT IS INCONTINENT OF B&B. PATIENT HAS EXPRESSIVE APHAGIA, AND LEGALLY BLIND. FALL AND SAFETY PROTOCOLS IN PLACE. DENIES PAIN, DENIES PAIN. PATIENT IS ON LOW IMPACT REHAB. PATIENT TO SLEEPY TO PARTICIPATE IN THERAPIES TODAY. WILL CONTINUE TO MONITER.
[2018-09-21 20:00] VITALS: BP 132/81
--- NOTE | 2018-09-22 03:56 | NUR ---
PT LETHARGIC. RESPONDS TO PAINFUL STIMULI AND CARES. INCONT OF URINE IN LARGE AMTS. BLOOD SUGAR 242 AT HS. INSULIN GIVEN ORDERED. TURNED Q2H. PT IN NO APPARENT PAIN OR DISCOMFORT. DIFFICULT TO ASSESS DUE TO LANGUAGE BARRIER. BED ALARM ON FOR SAFETY. PT APPEARS TO BE SLEEPING ON HOURLY ROUNDS.
[2018-09-22 09:33] VITALS: BP 116/74
[2018-09-22 09:50] VITALS: BP 119/57
--- NOTE | 2018-09-22 10:37 | NUR ---
ASSUMED CARES AT 0700. PT SLEEPY AND LETHARGIC, EYES CLOSED DURING ALL CARES. VITALS REMAINED STABLE. UNABLE TO ASSESS PAIN R/T CONFUSION AND LANGUAGE BARRIER. PT REMAINS INCONTINENT OF BOTH BOWEL AND BLADDER, JOAQUIN AREA CLEANED AND Z GUARD APPLIED AROUND SACRAL AREA. CONTINUES TO HAVE BRUISES ON RIGHT ARM, R LATERAL CHEST AND LEFT LATERAL HIP. PT ATE 60% OF HER BREAKFAST, TOOK ALL HER PILLS CRUSHED IN APPLESAUCE. IV ON LEFT FOREARM REMAINS INTACT AND PATENT. Q2H TURNS. Q1H VISUAL CHECKS. CALL LIGHT WITHIN REACH. FALL PRECAUTIONS IN PLACE.
[2018-09-22 19:20] VITALS: BP 126/73
--- NOTE | 2018-09-23 03:15 | NUR ---
assumed care at approx 1900 evening 09/22. pt lying in bed sleeping. pt assisted with turning and repositioning. pt incontinent of urine and pad changed. pt with no hs meds except lantus insulin. pt appears to be sleeping soundly with hourly rounding checks. call light in reach and bed alarm on, will continue to monitor.
[2018-09-23 07:30] VITALS: BP 138/86
--- NOTE | 2018-09-23 10:25 | NUR ---
information and question passed on to rn cm from edge dyer from family. cm visited with daughter blake mohamud and granddaughter at bedside, noted pt lying left side, curled up position eyes closed and non verbal during visit. family had question rt dc on sunday09/25/18, rt pt unable to participate with any therapies, how to get help in home, what other kids of rehab can she go to and stay at, if she was to pass away at home what would happen, need hospital bed and need transportation home and unable to afford transportation"/family. education on senior blue book, private duty, palliative care, hospice, education on outside hospital dnr, rental of dme equip ie hospital bed from provider plus is 250.00 per month and has to use card and have monthly payment come off card each month. edge dyer has mention palliative and hospice, edge dyer working on handicap sticker for pt. education that pt not qualify for ability samuel at this time rt bedbound and family would have to take imer daily to samuel ability for program, family not receptive to samuel ability information and will discuss palliative and hospice later. family requested dnr for when get her home. family was going home to call [employer] duty vi[employer]ood and to figure out what home imer was going to go to rt all have steps or live in 1 bedroom apartment " grandpraveen is staying with all different family right now because he can not stay along by him self either and he would just stay with grandma"/ granddaughter . cm passed on information to edge dyer and bedside nurse family stated "concerned that her breathing is very fast then very slow"/daughters. discussed during los, with elevator mechanic and cm orange picking supervisor ok to vouched for express transport to get pt to home or family home. will cont following as needed for dc needs.
--- NOTE | 2018-09-23 11:04 | NUR ---
ASSUMED CARES AT 0700. PT IN BED ASLEEP AND LETHARGIC, DID NOT OPEN HER EYES AND ONLY MUMBLES WORDS THAT ARE NON-COMPREHENSIVE. UNABLE TO ASSESS PAIN EVEN WITH CLUB STEWARD. VITALS REMAIN STABLE, PT HAS EPISODES OF FAST BREATHING 25-28 BREATHES PER MINUTE. PT REPOSITIONED Q2H, SKIN REMAINS INTACT, BRUISES IN ARMS AND RIGHT LATERAL CHEST FROM FALL PRIOR TO ADMISSION. PT HAS NOT TRANSFERED YET SHE'S VERY LETHARGIC, OT ABLE TO SIT PT ON SIDE OF BED AND COMPLETE ADL'S. PT CONTINUES TO BE INCONTINENT OF BOTH BOWEL AND BLADDER. Q1H VISUAL CHECKS. CALL LIGHT WITHIN REACH. FALL PRECAUTIONS IN PLACE
[2018-09-23 14:57] LABS: ABSOLUTE NEUTROPHILS 8.9 thou/uL (1.4-8.2); BASOPHILS 0.6 % (0.0-2.0); EOSINOPHILS 0.6 % (0.0-3.0); HEMATOCRIT 36.6 % (37.0-47.0); HEMOGLOBIN 12.6 gm/dL (12.0-15.0); LYMPHOCYTES 10.7 % (24.0-44.0); MCHC 34.5 g/dL (28.0-37.0); MCV 89.9 fL (80.0-100.0); MONOCYTES 8.1 % (1.0-8.0); PLATELET COUNT 113 thou/uL (150-400); RBC 4.08 mil/uL (4.20-5.00); RDW 14.2 % (10.5-14.5); WBC 11.1 thou/uL (4.0-11.0)
[2018-09-23 15:13] LABS: ALBUMIN 2.4 g/dL (3.4-5.0); CALCIUM 8.1 mg/dL (8.5-10.1); CREATININE 1.1 mg/dL (0.6-1.0); TOTAL BILIRUBIN 0.9 mg/dL (<0.1-1.0); TOTAL PROTEIN 5.6 g/dL (6.4-8.2)
[2018-09-23 15:17] LABS: POTASSIUM 2.9 mmol/L (3.5-5.1)
[2018-09-23 16:46] LABS: BE(vivo) -3.1 mmol/L (-2 to +3); HCO3 18.4 mmol/L (22.0-26.0); sO2 95.8 % (92.0-98.0)
[2018-09-23 16:47] LABS: PCO2 24.1 mmHg (35.0-45.0)
[2018-09-23 19:15] VITALS: BP 110/53
--- NOTE | 2018-09-24 01:50 | NUR ---
PT LETHARGIC, RESPONDS TO PAINFUL STIMULI AND CARES. LW SALINE LOCK INTACT AND PATENT. BLOOD SUGAR 223 AT HS. INSULIN GIVEN ORDERED. PT TOOK HS MEDS CRUSHED IN APPLESAUCE. PT IN NO APPARENT PAIN OR DISCOMFORT. RESP FAST AT TIMES AND WITH APNEA AT OTHER TIMES. 02 SAT 96% ON RA. BED ALARM ON FOR SAFETY. PT CHECKED ON HOURLY ROUNDS. TURNED Q2H.
[2018-09-24 08:29] VITALS: BP 147/91
--- NOTE | 2018-09-24 09:26 | NUR ---
ASSUMED CARE AT 0700. PATIENT IS FRENCH SPEAKNG ONLY. PATIENT WOULD NOT ENGAGE WHEN ASSESSED. PATIENT WAS FED BY SPEECH THERAPY. PATIENT SUCKED THE FOOD OFF THE SPOON. PATIENT WAS SET UP IN A 90 DEGREE ANGLE FOR MEALS. PATIENT WOULD NOT SQUEEZE MY FINGERS. PATIENT WOULD NOT OPEN HER EYES. LUNGS ARE CLEAR AND DEMINISHED. ABD IS SOFT WITH BSX4. PATIENT IS INCONTINENT OF B & B. PATIENT IS A TURN Q 2 HOURS. FALL AND SAFETY PROTOCOLS IN PLACE. UNABLE TO COMMUNICATE IF SHE HAS ANY PAIN. WILL CONTINUE TO MONITER. RE-EVAL IN TEAM TODAY.
--- NOTE | 2018-09-24 10:02 | NUR ---
cm notified by care team assistant that family wanted referral sent to hospice house. cm team to send referral for vito hospice referral, house vs home. cm also received phone call from ange with [facility] fax # [phone] stated, imer alexandru call [facility] after hours and ask that we come today early afternoon to meet with family and need clinical. we are still reviewing and unsure if able to take for vito. will let cm team know if able to accept"/ange with [facility]. will cont following as needed for dc needs.
--- NOTE | 2018-09-24 10:39 | NUR ---
FAXED REFERRAL TO HOSPICE SPOKE WITH CHELE IN ADM. SHE RECEIVED REFERRAL AND SET UP A MTG WITH FAMILY AT NOON TODAY WITH RADHA FROM [facility] FAXED REFERRAL TO [facility] SPOKE WITH ZEB IN ADM. SHE RECEIVED REFERRAL AND SET UP MTG WITH FAMILY AT 1600 TODAY. DCP TO FOLLOW.
--- NOTE | 2018-09-24 11:28 | H ---
[facility] [place] [place] [address] HISTORY AND PHYSICAL Name: MARY LUKE Room #: 506-1 ADM IN M.R.#: [id number] Admission: 09/20/18 ������������������ Attend Phys: Julio Black MD Discharge: ������������������ Date of : 38 Report #: [id number] THIS REPORT FOR: //name// CC: Julio Black [facility] unknown DATE OF SERVICE: 09/20/2018 HISTORY OF PRESENT ILLNESS: This is a 78-year-old female who presented to the Emergency Department after she woke up with difficulty with speech. MRI of the head on 09/16 confirmed multiple acute/subacute ischemic infarcts, the largest infarct within the left posterior temporal/parietal region and in the right occipital lobe. She was seen by Neurology and Cardiology. She did have an elevated troponin, but no ischemic changes on EKG and a normal echocardiogram. There was no further cardiac workup recommended. She was treated with aspirin and Plavix. She has had some trouble with right-sided headache. The patient has had significant decline in functional mobility along with swallowing and aphasia, for which she is being admitted to acute inpatient rehabilitation. Today, the patient voices no complaints. She has no headache or dizziness. She does have some vision changes. She has some pain in her legs at times that family reports. Otherwise no cough, shortness of air, chest pain, nausea, vomiting, constipation, dysuria or skin breakdown. Exam is limited due to language barrier. Family assists with translation in room. The patient is Frisian speaking only. PAST MEDICAL HISTORY: Type 2 diabetes, hypertension. Recent acute cholecystitis, for which plan to have a laparoscopic cholecystectomy in the next few months. Recent acute inferior lateral [place] with coronary stenting in 07/2018. Peripheral neuropathy, degenerative joint disease. ALLERGIES: No known drug allergies. CURRENT MEDICATIONS: Senna p.r.n., bisacodyl p.r.n., milk of mag p.r.n., Colace p.r.n., Lantus 15 units at bedtime, Zofran 4 mg q.4 hours p.r.n., Tylenol 650 q.4 hours p.r.n., Normodyne eye drops daily, melatonin 10 mg at bedtime p.r.n., Norvasc 10 mg daily p.r.n., losartan 50 mg daily, Plavix 75 mg daily, sliding scale insulin a.c. and at bedtime. HABITS: The patient is a nonsmoker, no alcohol use, no illicit drug use. SOCIAL HISTORY: The patient is . She lives with her and her granddaughter. She lives in a house. There are one entry stairs with 0 stairs that she has to do inside, it is a 2-story home, but she resides on the main level. She was using a 2-wheeled walker premorbidly. She was independent with ADLs. She shares the IADLs. She has 2 daughters that are very involved. They do work during the day, but are working on consolidating their schedules so that [address] [address] HISTORY AND PHYSICAL Name: MARY LUKE Room #: 506-1 [facility] IN ..#: [id number] Admission: 09/20/18 ������������������ Attend Phys: Julio Black MD Discharge: ������������������ Date of : 38 Report #: [id number] a family member can be present with the patient when she returns home 26/02. REVIEW OF SYSTEMS: Remainder of her 14-point review of systems is negative except as listed in HPI. PHYSICAL EXAMINATION: VITAL SIGNS: Blood pressure 130/69, respirations 18, pulse of 87, temperature 100.2. She is 100% oxygen sat on room air. GENERAL: She is awake, alert. She is oriented to time and person. She otherwise appears confused, although the language barrier makes it difficult to assess along with her probable global aphasia. Family is in room to help translate conversation. She will follow few basic commands. She does get easily drowsy and will close her eyes. She is in no acute distress. She is on room air. HEENT: Head is normocephalic. Eyes: EOMs are intact. No nystagmus. Family reports glaucoma premorbidly with vision changes. ENT: No sinus tenderness, no rhinorrhea. NECK: No lymphadenopathy. CARDIOVASCULAR: S1, S2 intact. CHEST: Lungs are clear to auscultation bilaterally. No crackles, no wheeze. ABDOMEN: Bowel sounds are positive. She is soft, nontender, nondistended. GENITOURINARY: No CVA tenderness. She appears to have functional range of motion of her extremities, although she does not participate fully in the exam. Bed mobility is max assist, max assist for bathing, max assist for grooming. She was able to transfer sit to stand with mod assist and required mod assist to maintain static standing balance. She requires max encouragement to participate and to keep her eyes open. Family remains in room during my exam and during therapy sessions to help with encouragement and translation. She has no pedal edema, appears to have negative Homans sign. SKIN: Warm, dry and intact. NEUROLOGIC: As exam noted above. PSYCHIATRIC: She does have an anxious affect. CODE STATUS: No code. LABORATORY DATA: CT of the head from 09/19 shows no acute abnormalities, stable encephalomalacia, bilateral occipital regions, consistent with evolving CVA. 09/18/2018, WBC is 8.0, hemoglobin 11.5, platelets 139. Sodium 136, potassium 2.9, BUN 8, creatinine 0.9, glucose 192, calcium 8.0. ASSESSMENT: 1. Acute to subacute right occipital and left temporal multi-infarct cerebrovascular accident. 2. Acute delirium. 3. Expressive aphasia, possible global aphasia component. 4. Stable encephalomalacia. [facility] [address] [place] [address] HISTORY AND PHYSICAL Name: MARY LUKE Room #: 506-1 ADM IN ..#: [id number] Admission: 09/20/18 ������������������ Attend Phys: Julio Black MD Discharge: ������������������ Date of : 38 Report #: [id number] 5. Myocardial infarction with recent stents 07/2018. 6. Recent acute cholecystitis. We will need eventual cholecystectomy. 7. Type 2 diabetes. 8. Hypertension. 9. Hyperlipidemia. PLAN: The patient has been admitted to acute inpatient rehabilitation for physical, occupational and speech therapies. She will be on the low endurance protocol. She will continue to have hospitalist services followup for medical management and Cardiology involved as needed. She will have neuropsychology testing with Dr. Scott done. She will be on a pureed diet, carb-controlled and heart healthy. We will supplement with Glucerna shakes twice a day and have dietitian follow along. Total length of stay will be 14 days with discharge to home with 24-hour family supervision. Family is already working on obtaining DME equipment. Social Work Services will follow to help assist with transition. Please see extensive orders. ��������������������������������������������� <ELECTRONICALLY SIGNED> ���������������������������������������� By: TO Knight ��������������������������������������������� 09/24/18 [id number] TO Knight /nt
[2018-09-24] MEDS ORDERED: BISACODYL SUPP10 MG RECTAL (14:14)
--- NOTE | 2018-09-24 15:35 | NUR ---
PT. DISCHARGING TODAY TO HOSPICE HOUSE. FAXED DC ORDERS/SUMMARY TO FACILITY AND SPOKE WITH JOSÉ MIGUEL IN ADM. AND SHE RECEIVED DC ORDERS. PT. TRANSPORTING TO FACILITY VIA AMBULANCE AT [phone]. FAMILY (DTR) NOTIFIED IN RM OF TIME OF TRANSPORT. UNIT NOTIFIED AND RN TO CALL REPORT TO [phone]. OUTSIDE DNR SENT WITH PT.
== END 2018-09-24 15:57 | disposition hospice, inpatient (51) | DRG 64 ==
PROVIDERS: Nurse Practitioner; Nurse Practitioner Family; Pediatrics; ADMIT Physical Medicine & Rehabilitation
DX: I63.9 Cerebral infarction, unspecified (principal); E43 Unspecified severe protein-calorie malnutrition; F05 Delirium due to known physiological condition; I25.5 Ischemic cardiomyopathy; H40.9 Unspecified glaucoma; Z66 Do not resuscitate; R47.01 Aphasia; I10 Essential (primary) hypertension; M19.90 Unspecified osteoarthritis, unspecified site; E11.42 Type 2 diabetes mellitus with diabetic polyneuropathy; F03.90 Unspecified dementia, unspecified severity, without behavioral disturbance, psychotic disturbance, mood disturbance, and anxiety; G47.10 Hypersomnia, unspecified; E87.6 Hypokalemia; I25.10 Atherosclerotic heart disease of native coronary artery without angina pectoris; G93.89 Other specified disorders of brain; R13.10 Dysphagia, unspecified; H54.8 Legal blindness, as defined in USA; E78.5 Hyperlipidemia, unspecified; Z68.21 Body mass index [BMI] 21.0-21.9, adult; I25.2 Old myocardial infarction; Z95.5 Presence of coronary angioplasty implant and graft; Z79.02 Long term (current) use of antithrombotics/antiplatelets; Z79.4 Long term (current) use of insulin; Z79.899 Other long term (current) drug therapy; Z82.49 Family history of ischemic heart disease and other diseases of the circulatory system; Z83.3 Family history of diabetes mellitus
CPT/HCPCS: 10112